=== PATIENT | male | born 1965 | race Two or more races ===

== ENCOUNTER 2016-10-14 18:08 | Inpatient (IN) | payer BC ==
[~2016-10-14] VITALS: Ht 177.8 cm; Wt 122.9 kg
--- NOTE | 2016-10-14 17:55 | NUR ---
TELE/RN OPENING NOTES PATIENT ARRIVED FROM ER ON A GURNEY.ALERT, ORIENTED X3 ABLE TO VERBALIZE NEEDS. OBSERVE FACIAL GRIMACE AND GUARDING. LAST PAIN MEDICATION GIVEN [id number].PAATIENT WITH DX OF CHEST PAIN WITH HX OF HTN, PEX2, BACK INJURY, HEMATOMA IN HEADM PROTEINS DEFFICIENCY IN BLOOD STATED BY PATIENT. ON TELE AT SINUS TACHY 115. IV ON RIGHT AC B/P 159/89. PAIN AT 7/10. POTASSIUM AT 3.4. CHEST XRAY DONE W/ NO ABNORMAL FINDING TROPONIN LEVEL 0.17. ROOM ORIENTATION PROVIDED, BELONGINGS CHECK. OBSERVE PATIENT STRONG TELEHEALTH COORDINATOR. WITH BUE AND BLE EDEMA .WILL CONTINUE TO PROVIDE CARE. BED IN LOCK POSITION CALL LIGHT WITHIN REACH.
[2016-10-14] MEDS ORDERED: MORPHINE SULFATE INJ 2 MG/ML DISP.SYRIN IV ONE (18:30)
[2016-10-14] MEDS ORDERED: ONDANSETRON HCL/PF 4 MG/2 ML VIAL IVP ONE (18:30)
--- NOTE | 2016-10-14 18:30 | NUR ---
PRESENTS SELF TO ED DUE TO CHEST PAIN, PRESSURE LIKE, 5/10, NON RADIATING STARTED 1HOUR PROGRAM DIRECTOR SCOUTING . PATIENT IS AAO3, APPEARS IN NO APPARENRT DISTRESS, HOWEVER PATIENT APPEARS ANXIOUS/ WORRIED. PATIENT WITH HX OF PE- CURRENTLY ON COUMADINE. GOWNED PT AND PLACED ON TELE MONITOR. MD PEGUERO AT BS
[2016-10-14] MEDS ORDERED: MORPHINE SULFATE INJ 4 MG/ML DISP.SYRIN ONE (18:31)
[2016-10-14] MEDS ORDERED: ONDANSETRON HCL/PF 4 MG/2 ML VIAL ONE (18:31)
--- NOTE | 2016-10-14 18:32 | NUR ---
IV ACCESSED TO BANNER 20. BLOOD SAMPLE SENT TO LAB.
[2016-10-14 18:35] LABS: BASOPHILS # (AUTO) 0.1 /CMM (0.0-0.2); EOSINOPHILS # (AUTO) 0.4 /CMM (0.0-0.7); HEMATOCRIT 45 % (39-51); HEMOGLOBIN 15.2 g/dL (13.5-17.5); LYMPHOCYTES # (AUTO) 2.4 /CMM (0.8-4.8); LYMPHOCYTES % (AUTO) 20.8 % (20.0-44.0); MEAN CORPUSCULAR HEMOGLOBIN 31 PG (26.0-33.0); MEAN CORPUSCULAR HGB CONC 34 g/dl (31.0-36.0); MEAN CORPUSCULAR VOLUME 90 fL (80-96); MONOCYTES % (AUTO) 8.1 % (2.0-12.0); NEUTROPHILS # (AUTO) 7.8 /CMM (1.8-8.9); NEUTROPHILS % (AUTO) 67.1 % (43.0-81.0); PLATELET COUNT (AUTO) 388 /CMM (150-450); RDW COEFFICIENT OF VARIATION 13.3 (11.5-15.0); RED BLOOD CELL COUNT(AUTO) 4.98 MIL/uL (4.5-6.0); WHITE BLOOD COUNT (AUTO) 11.7 K/uL (4.3-11.0)
[2016-10-14 18:45] LABS: CALCIUM, SERUM 8.9 mg/dL (8.5-10.1); CARBON DIOXIDE 31 mmol/L (21-32); CHLORIDE 104 mmol/L (98-107); CREATININE 1.3 mg/dL (0.6-1.3); GLUCOSE 114 mg/dL (74-106); POTASSIUM 3.4 mmol/L (3.5-5.1); SODIUM SERUM 143 mmol/L (136-145); UREA NITROGEN, BLOOD 18 mg/dL (7-18)
[2016-10-14] MEDS ORDERED: IV NS 0.9% 250 ML IV ONE (18:46)
[2016-10-14] MEDS ORDERED: IOHEXOL-350 100 ML VIAL IV ONE (18:46)
--- NOTE | 2016-10-14 18:49 | NUR ---
CALLED NURSING SUP. FOR TELE BED
[2016-10-14] MEDS ORDERED: HYDROMORPHONE 1 MG/1 ML DISP.SYRIN ONE (18:50)
[2016-10-14 18:53] LABS: TROPONIN I < 0.017 ng/mL (0.00-0.056)
--- NOTE | 2016-10-14 18:55 | NUR ---
MEDICATED PT FOR PAIN ORDERED
--- NOTE | 2016-10-14 18:55 | NUR ---
PATIENT WAS TAKEN TO CT
[2016-10-14] MEDS ORDERED: HYDROMORPHONE 1 MG/1 ML DISP.SYRIN IV ONE (19:00)
[2016-10-14 19:02] LABS: ALANINE AMINOTRANSFERASE 25 U/L (12-78); ALKALINE PHOSPHATASE 82 U/L (46-116); ASPARTATE AMINOTRANSFERASE 14 U/L (15-37); B-TYPE NATRIURETIC PEPTIDE 38 PG/ML (0-125); BILIRUBIN,TOTAL 0.3 mg/dL (0.2-1.0); TOTAL PROTEIN, SERUM 7.6 g/dL (6.4-8.2)
--- NOTE | 2016-10-14 19:10 | NUR ---
REPORT GIVEN TO NURSE APONTE FOR HEIDY
--- NOTE | 2016-10-14 19:10 | NUR ---
PT RETURNED FROM CT.
--- NOTE | 2016-10-14 19:11 | NUR ---
PT IS C/O CP 10/25. PT REC'D MEDICATION [address] PEGUERO IS AWARE. WILL CONTINUE TO MONITOR THE PT.
[2016-10-14 19:14] LABS: D-DIMER 0.19 mg/L(FEU (0.17-0.50); INR 2.16 (0.87-1.13); PROTHROMBIN TIME 24.3 SECS (9.5-12.7)
[2016-10-14] MEDS ORDERED: WARF4TAB41 PO (19:26)
[2016-10-14] MEDS ORDERED: WARF6TAB23 PO (19:26)
[2016-10-14] MEDS ORDERED: ATOR10TA PO (19:26)
[2016-10-14] MEDS ORDERED: IV SET PRIMARY 1 EA INFUS.SET MC ONE (19:26)
[2016-10-14] MEDS ORDERED: HYDR25TA4 PO (19:26)
[2016-10-14] MEDS ORDERED: CLON0.5T4 PO (19:26)
[2016-10-14] MEDS ORDERED: IV NS 0.9% 1,000 ML ONE (19:26)
[2016-10-14] MEDS ORDERED: CHOL200026 PO (19:26)
[2016-10-14] MEDS ORDERED: LISI2.5T2 PO (19:26)
[2016-10-14] MEDS ORDERED: CITA10TA17 PO (19:26)
--- NOTE | 2016-10-14 19:26 | NUR ---
PT APPEARS TO BE RESTING COMFORTABLY. NO S/S OF DISTRESS NOTED. WILL CONTINUE TO MONITOR THE PT.
[2016-10-14] MEDS ORDERED: IV NS 0.9% 1,000 ML BAG IV ONE (19:30)
--- NOTE | 2016-10-14 19:36 | NUR ---
CALLING REPORT MONTSERRAT ARMSTRONG
[2016-10-14 21:04] VITALS: BP 150/72
[2016-10-14] MEDS ORDERED: WARFARIN SODIUM 2 MG TABLET PO ONE (21:30)
[2016-10-14] MEDS ORDERED: ONDANSETRON HCL/PF 4 MG/2 ML VIAL IVP PRN (21:30)
[2016-10-14] MEDS ORDERED: ACETAMINOPHEN 325 MG TABLET PO PRN (21:30)
[2016-10-14] MEDS ORDERED: clonazePAM 0.5 MG TABLET PO PRN (21:30)
[2016-10-14] MEDS ORDERED: MAGNESIUM HYDROXIDE 30 ML UDC PO PRN (21:30)
[2016-10-14] MEDS ORDERED: HYDROMORPHONE INJ 2 MG/ML DISP.SYRIN IV PRN (21:30)
[2016-10-14] MEDS ORDERED: MAG HYDROX/AL HYDROX/SIMETH 30 ML UDC PO PRN (21:30)
[2016-10-14] MEDS ORDERED: ZOLPIDEM TARTRATE 5 MG TABLET PO PRN (21:30)
[2016-10-14] MEDS ORDERED: HYDROCODONE/APAP 5/325MG 1 EACH TABLET ONE (21:36)
[2016-10-14] MEDS ORDERED: METOPROLOL TARTRATE 25 MG TABLET ONE (21:38)
[2016-10-14] MEDS: HYDROCODONE/APAP 5/325MG 1 EACH TABLET PO PRN (21:42)
[2016-10-14] MEDS ORDERED: LEVOFLOXACIN 750 MG /D5W 150ML 150 ML IV ONE (21:45)
[2016-10-14] MEDS: METOPROLOL TARTRATE 25 MG TABLET PO SCH (21:51)
[2016-10-14] MEDS ORDERED: WARFARIN SODIUM 2 MG TABLET ONE (22:11)
[2016-10-14] MEDS: LEVOFLOXACIN 750 MG /D5W 150ML 750 MG in PREMIX 1 EA IV SCH (22:44)
[2016-10-14] MEDS ORDERED: SECONDARY IV SET 1 EA INFUS.SET MC ONE (23:00)
[2016-10-14] MEDS ORDERED: IV NS 0.9% 100 ML IV ONE (23:09)
[2016-10-14] MEDS ORDERED: IV SET PRIMARY PUMP SET 1 EA INFUS.SET MC ONE (23:09)
[2016-10-14] MEDS ORDERED: IV PREMIX 0.45% NS + KCL 1,000 ML IV ONE (23:45)
[2016-10-15 00:33] VITALS: BP 155/92
--- NOTE | 2016-10-15 01:14 | NUR ---
TELE/RN NOTES MD MADE ROUNDS AND TALK TO PATIENT. PATIENT VERBALIZED PAIN WILL 7/10 WILL GIVE NEEDED PAIN [place] AND CONTINUE MONITORING.
[2016-10-15] MEDS ORDERED: HYDROCODONE/APAP 5/325MG 1 EACH TABLET ONE (01:17)
[2016-10-15] MEDS: HYDROCODONE/APAP 5/325MG 1 EACH TABLET PO PRN ×4 (01:23→22:03)
[2016-10-15] MEDS ORDERED: HYDROMORPHONE INJ 2 MG/ML DISP.SYRIN ONE ×2 (02:17→05:38)
[2016-10-15 04:00] VITALS: BP 146/90
[2016-10-15 06:58] VITALS: BP 154/90
--- NOTE | 2016-10-15 07:00 | NUR ---
tele/rn closing notes patient in bed, alert, oriented x3. able to verbalize needs on pain management for mid sternal pain on chest/ . tele reading st 83. ambulatory, skin intact with noted bump/hematoma in head. will endorse to am rn regarding continuity of care/
[2016-10-15 07:16] LABS: BASOPHILS % (AUTO) 0.5 % (0.0-2.0); EOSINOPHILS # (AUTO) 0.4 /CMM (0.0-0.7); EOSINOPHILS % (AUTO) 3.5 % (0.0-6.0); HEMATOCRIT 39 % (39-51); HEMOGLOBIN 13.4 g/dL (13.5-17.5); LYMPHOCYTES # (AUTO) 2.5 /CMM (0.8-4.8); LYMPHOCYTES % (AUTO) 25.3 % (20.0-44.0); MEAN CORPUSCULAR HEMOGLOBIN 31 PG (26.0-33.0); MEAN CORPUSCULAR HGB CONC 34 g/dl (31.0-36.0); MEAN CORPUSCULAR VOLUME 90 fL (80-96); MONOCYTES # (AUTO) 1.1 /CMM (0.1-1.30); MONOCYTES % (AUTO) 11.1 % (2.0-12.0); NEUTROPHILS # (AUTO) 5.9 /CMM (1.8-8.9); NEUTROPHILS % (AUTO) 59.6 % (43.0-81.0); PLATELET COUNT (AUTO) 330 /CMM (150-450); RDW COEFFICIENT OF VARIATION 13.6 (11.5-15.0); RED BLOOD CELL COUNT(AUTO) 4.38 MIL/uL (4.5-6.0); WHITE BLOOD COUNT (AUTO) 9.9 K/uL (4.3-11.0)
[2016-10-15 07:22] LABS: INR 1.98 (0.87-1.13); PROTHROMBIN TIME 22.1 SECS (9.5-12.7)
[2016-10-15 07:32] LABS: TROPONIN I < 0.017 ng/mL (0.00-0.056)
--- NOTE | 2016-10-15 07:32 | NUR ---
rn notes received pt in bed. awake, alert, oriented x4. in no apparent distress. respirations even and unlabored on o2 @ 2lpm via nc. stated pain @ 6/10 ; will administer PRN norco. Pt signed consent for planned VQ scan this am. call light within reach. Will continue to monitor
[2016-10-15 07:42] LABS: ALANINE AMINOTRANSFERASE 27 U/L (12-78); ALBUMIN 3.3 g/dL (3.4-5.0); ALKALINE PHOSPHATASE 64 U/L (46-116); ASPARTATE AMINOTRANSFERASE 16 U/L (15-37); BILIRUBIN,TOTAL 0.3 mg/dL (0.2-1.0); CARBON DIOXIDE 27 mmol/L (21-32); CHLORIDE 106 mmol/L (98-107); CREATININE 0.8 mg/dL (0.6-1.3); GLUCOSE 102 mg/dL (74-106); MAGNESIUM 1.8 mg/dL (1.8-2.4); PHOSPHORUS 3.9 mg/dL (2.5-4.9); POTASSIUM 3.7 mmol/L (3.5-5.1); SODIUM SERUM 141 mmol/L (136-145); TOTAL PROTEIN, SERUM 6.7 g/dL (6.4-8.2); UREA NITROGEN, BLOOD 17 mg/dL (7-18)
[2016-10-15] MEDS: PANTOPRAZOLE 40 MG TABLET.DR PO SCH (07:49)
[2016-10-15 08:00] VITALS: BP 162/99
[2016-10-15] MEDS: LISINOPRIL (10MG) 10 MG TABLET PO SCH (08:25)
[2016-10-15] MEDS: CITALOPRAM HYDROBROMIDE 10 MG TABLET PO SCH (08:25)
[2016-10-15] MEDS: CHOLECALCIFEROL 1,000 UNIT TABLET (VIT D3) PO SCH (08:25)
[2016-10-15] MEDS: METOPROLOL TARTRATE 25 MG TABLET PO SCH ×2 (08:26→21:00)
[2016-10-15 08:35] LABS: CHOLESTEROL 199 mg/dL (<200); HDL CHOLESTEROL 29 mg/dL (40-60); LDL 120 mg/dL (0-99); THYROID STIMULATING HORMONE 1.172 uIU/mL (0.358-3.74); TRIGLYCERIDES 259 mg/dL (30-150)
[2016-10-15] MEDS ORDERED: HYDROCHLOROTHIAZIDE 25 MG TABLET PO SCH (09:00)
--- NOTE | 2016-10-15 09:30 | NUR ---
RN NOTES PT TOLERATED ALL DUE MEDS. ATE BREAKFAST WELL. IN O APPARENT DISTRESS. WILL CONTINUE TO MONITOR
[2016-10-15] MEDS: HYDROMORPHONE INJ 2 MG/ML DISP.SYRIN IV PRN ×3 (09:53→19:47)
--- NOTE | 2016-10-15 10:00 | NUR ---
RN NOTES PT SEEN AND EXAMINED BY DR RITTER- WITH NEW ORDERS NOTED AND CARRIED OUT
[2016-10-15] MEDS: VALSARTAN 80 MG TABLET PO SCH (10:50)
--- NOTE | 2016-10-15 11:30 | NUR ---
RN NOTES PT PICKED UP BY RADIOLOGY FOR SCHEDULED CARDIAC STRESS TEST. WILL AWAIT RETURN
--- NOTE | 2016-10-15 15:47 | NUR ---
RN NOTES PT SIGNED CONSENT FOR CARDIAC STRESS TEST. PLACED IN CHART. PT GIVEN INSTRUCTIONS NPO POST MIDNIGHT, NO CAFFEINATED DRINK AFTER DINNER TONIGHT. VERBALIZED UNDERSTANDING
[2016-10-15 16:00] VITALS: BP 153/91
[2016-10-15] MEDS: WARFARIN SODIUM 2 MG TABLET PO SCH (17:00)
[2016-10-15] MEDS ORDERED: WARFARIN SODIUM 2 MG TABLET PO SCH (17:00)
--- NOTE | 2016-10-15 18:00 | NUR ---
RN NOTES PT IN BED. AWAKE, ALERT, ORIENTED X 3. IN NO APPARENT DISTRESS. RESPIRATIONS EVEN AND UNLABORED. TOLERATED ALL DUE MEDS. WILL ENDORSE TO ONCOMING SHIFT
--- NOTE | 2016-10-15 19:05 | NUR ---
DRUG DEPARTMENT WORKER OPENING NOTES: RECEIVED PT IN BED AWAKE WITH GIRLFRIEND AT BEDSIDE. PT IS A/O X3. PT HAS URINAL AT BEDSIDE. PT WAS INFORMED THAT HE WILL BE NPO PAST MIDNIGHT. PT HAS IV ON R AC 20G AND IS PATENT AND INTACT. PT VOICED THAT HIS PAIN LEVEL IS AT A 7/10 CHEST PAIN. CALL LIGHT WITHIN PT'S REACH. BED KEPT IN LOCKED, LOWEST POSITION, AND SIDE RAILS X 2 UP. WILL CONTINUE TO MONITOR PT.
--- NOTE | 2016-10-15 19:05 | NUR ---
REVENUE STAMP CLERK NOTES: REASSESSMENT FOR [place]BBOCK 10/15/16 0223 WAS NOT DONE.
--- NOTE | 2016-10-15 19:47 | NUR ---
BRANCH OR DEPARTMENT CHIEF LIBRARIAN NOTES: PT COMPLAINED OF CHEST PAIN 11/24. PT REQUESTED FOR DILAUDID 1MG IV. WILL CONTINUE TO MONITOR PT.
[2016-10-15 20:00] VITALS: BP 101/68
--- NOTE | 2016-10-15 21:00 | NUR ---
GOLD LEAF GILDER NOTES: LOPRESSOR 25MG PO WAS HELD D/T LOW BLOOD PRESSURE: 101/68 HR 64 ; WILL CONTINUE TO MONITOR PT.
[2016-10-15] MEDS: LEVOFLOXACIN 750 MG /D5W 150ML 750 MG in PREMIX 1 EA IV SCH (21:36)
[2016-10-15] MEDS ORDERED: IV NS 0.9% 250 ML IV ONE (21:39)
[2016-10-15] MEDS ORDERED: IV SET PRIMARY PUMP SET 1 EA INFUS.SET MC ONE (21:39)
[2016-10-15] MEDS ORDERED: SECONDARY IV SET 1 EA INFUS.SET MC ONE (21:40)
--- NOTE | 2016-10-15 22:03 | NUR ---
FLESHING MACHINE OPERATOR NOTES: PT IS STILL COMPLAINING OF CHEST PAIN 10/25. PT REQUESTED HIS NORCO 5/325MG PO. ALSO INFORMED PT THAT POST MIDNIGHT, HE WILL BE NPO. WILL CONTINUE TO MONITOR PT.
[2016-10-16] VITALS: BP 124/80
[2016-10-16] MEDS: HYDROMORPHONE INJ 2 MG/ML DISP.SYRIN IV PRN ×5 (00:47→14:25)
--- NOTE | 2016-10-16 00:47 | NUR ---
TUBULAR PRODUCTS FABRICATOR NOTES: PT COMPLAINED OF 7/10 HEAD AND CHEST PAIN. PT REQUESTED FOR DILAUDID. BP WAS 124/80 HR 86 AND PULSE OX 96% ; WILL CONTINUE TO MONITOR PT.
--- NOTE | 2016-10-16 03:53 | NUR ---
ACCOUNTS RECEIVABLE CLERK NOTES: PT COMPLAINED OF 6/10 HEAD PAIN AND REQUESTED FOR DILAUDID. PT'S BP WAS 113/77 HR 78 AND PULSE OX 97% . WILL CONTINUE TO MONITOR PT.
[2016-10-16 04:00] VITALS: BP 113/77
[2016-10-16 06:39] LABS: BASOPHILS # (AUTO) 0.1 /CMM (0.0-0.2); BASOPHILS % (AUTO) 0.6 % (0.0-2.0); EOSINOPHILS # (AUTO) 0.6 /CMM (0.0-0.7); EOSINOPHILS % (AUTO) 7.4 % (0.0-6.0); HEMATOCRIT 39 % (39-51); HEMOGLOBIN 13.6 g/dL (13.5-17.5); LYMPHOCYTES # (AUTO) 1.9 /CMM (0.8-4.8); LYMPHOCYTES % (AUTO) 24.2 % (20.0-44.0); MEAN CORPUSCULAR HEMOGLOBIN 31 PG (26.0-33.0); MEAN CORPUSCULAR HGB CONC 35 g/dl (31.0-36.0); MEAN CORPUSCULAR VOLUME 89 fL (80-96); MONOCYTES # (AUTO) 0.7 /CMM (0.1-1.30); MONOCYTES % (AUTO) 9.4 % (2.0-12.0); NEUTROPHILS # (AUTO) 4.6 /CMM (1.8-8.9); NEUTROPHILS % (AUTO) 58.4 % (43.0-81.0); PLATELET COUNT (AUTO) 345 /CMM (150-450); RDW COEFFICIENT OF VARIATION 13.6 (11.5-15.0); WHITE BLOOD COUNT (AUTO) 7.9 K/uL (4.3-11.0)
[2016-10-16 06:54] LABS: TROPONIN I < 0.017 ng/mL (0.00-0.056)
--- NOTE | 2016-10-16 06:54 | NUR ---
SENIOR USER EXPERIENCE ARCHITECT NOTES: PT COMPLAINED OF 7/10 CHEST AND HEAD PAIN. BP WAS 119/84 HR 98 AND PULSE OX 94% . WILL CONTINUE TO MONITOR PT.
[2016-10-16 07:04] LABS: ALANINE AMINOTRANSFERASE 27 U/L (12-78); ALBUMIN 3.3 g/dL (3.4-5.0); ALKALINE PHOSPHATASE 73 U/L (46-116); ASPARTATE AMINOTRANSFERASE 15 U/L (15-37); BILIRUBIN,TOTAL 0.2 mg/dL (0.2-1.0); CALCIUM, SERUM 8.4 mg/dL (8.5-10.1); CARBON DIOXIDE 27 mmol/L (21-32); CHLORIDE 105 mmol/L (98-107); CREATININE 0.9 mg/dL (0.6-1.3); GLUCOSE 127 mg/dL (74-106); MAGNESIUM 1.9 mg/dL (1.8-2.4); PHOSPHORUS 4.1 mg/dL (2.5-4.9); POTASSIUM 4.1 mmol/L (3.5-5.1); SODIUM SERUM 141 mmol/L (136-145); TOTAL PROTEIN, SERUM 6.9 g/dL (6.4-8.2); UREA NITROGEN, BLOOD 19 mg/dL (7-18)
[2016-10-16 07:06] VITALS: BP 125/70
--- NOTE | 2016-10-16 07:30 | NUR ---
AIRCRAFT LIFE SUPPORT FITTER AM NOTES: PT IN BED, AWAKE/ALERT/ORIENTED X 4, ON RA, NAD, NO SOB, RESPIRATION UNLABORED, TELEMETRY READS SR HR 75, C/O 4/10 CHEST PAIN, RECEIVED PAIN MEDS AWHILE AGO. RT AC20G IV ACCESS FLUSHES WELL, SITE CLEAR. AMBULATES TO BATHROOM. NPO FOR LEXISCAN BUT PATIENT REFUSING PROCEDURE. CALL LIGHT WITHIN PT'S REACH. BED KEPT IN LOCKED, LOWEST POSITION, AND SIDE RAILS X 2 UP. WILL CONTINUE TO MONITOR PT.
--- NOTE | 2016-10-16 07:30 | NUR ---
MASK LAYOUT DESIGNER CLOSING NOTES: ALL NEEDS WERE ATTENDED AND ANTICIPATED FOR. PT IS ON TELE SR 77-91 . PT HAS IV ON R AC #20G AND IS PATENT AND INTACT. PT KEPT CLEAN, DRY, AND COMFORTABLE. NO SIGNS OR SYMPTOMS OF DISTRESS NOTED AT THIS TIME. URINAL OUTPUT FOR THE SHIFT WAS 1500ML. BED KEPT IN LOCKED, LOWEST POSITION, AND SIDE RAILS X 2 UP. ENDORSED TO AM NURSE FOR HEIDY.
--- NOTE | 2016-10-16 07:52 | NUR ---
LEAD ADVISOR NOTES PATIENT SEEN BY DR. IRTTER STILL REFUSED LEXISCAN. WILL RESUME DIET.
[2016-10-16 08:00] VITALS: BP 125/70
[2016-10-16] MEDS: VALSARTAN 80 MG TABLET PO SCH (08:52)
[2016-10-16] MEDS: CHOLECALCIFEROL 1,000 UNIT TABLET (VIT D3) PO SCH (08:53)
[2016-10-16] MEDS: METOPROLOL TARTRATE 25 MG TABLET PO SCH (08:53)
[2016-10-16] MEDS: LISINOPRIL (10MG) 10 MG TABLET PO SCH (08:53)
[2016-10-16] MEDS: CITALOPRAM HYDROBROMIDE 10 MG TABLET PO SCH (08:53)
[2016-10-16] MEDS: PANTOPRAZOLE 40 MG TABLET.DR PO SCH (08:54)
[2016-10-16] MEDS ORDERED: REGADENOSON 0.4 MG/5 ML DISP.SYRIN IVP ONE (09:00)
--- NOTE | 2016-10-16 09:30 | NUR ---
MUCKER COFFERDAM NOTES ADMINISTERED DUE MEDS.
--- NOTE | 2016-10-16 10:45 | NUR ---
LOCAL SALES ASSOCIATE NOTES PT SEEN BY DR. SALGADO EARLIER, PATIENT INITIALLY AGREED TO HAVE NM STRESS TEST TOMORROW BUT AGAIN CHANGED HIS MIND. AWARE.
[2016-10-16 16:00] VITALS: BP 120/77
[2016-10-16] MEDS ORDERED: METO25TA20 PO (16:18)
[2016-10-16] MEDS ORDERED: VALS80TA2 PO (16:18)
[2016-10-16] MEDS: WARFARIN SODIUM 2 MG TABLET PO SCH (17:00)
[2016-10-16] MEDS: HYDROCODONE/APAP 5/325MG 1 EACH TABLET PO PRN (17:03)
[2016-10-16 17:13] VITALS: BP 120/77
--- NOTE | 2016-10-16 17:14 | NUR ---
VALVER DC NOTES PATIENT SEEN BY DR. SALGADO EARLIER TODAY. DISCHARGED TO HOME PER MD IN STABLE CONDITION. PROVIDED DC INSTRUCTIONS, MED RECON LIST AND HEALTH TEACHINGS, IV ACCESS ON RIGHT AC REMOVED, NO BLEEDING, DRESSING IN PLACE. ALL BELONGINGS CHECKED AND RETURNED. ALL PAPER WORKS SIGNED. PT TO FOLLOW UP WITH PCP IN 1-2 WEEKS AND WILL MAKE OWN APPOINTMENT. ACCOMPANIED BY GIRLFRIEND AND SAIGE SUSTAINABLE SYSTEMS ANALYST TO [facility]. WILL BE TRANSPORTED TO HOME VIA PRIVATE CAR.
== END 2016-10-16 17:30 | disposition home or self-care (01) | DRG 194 ==
LOC: ER 18:10 → TELE 19:47
PROVIDERS: ADMIT Internal Medicine; ATTEND Internal Medicine
DX: J15.9 Unspecified bacterial pneumonia (principal); D68.59 Other primary thrombophilia; I20.8 Other forms of angina pectoris; E66.01 Morbid (severe) obesity due to excess calories; G47.33 Obstructive sleep apnea (adult) (pediatric); I10 Essential (primary) hypertension; G89.4 Chronic pain syndrome; E87.6 Hypokalemia; Z79.01 Long term (current) use of anticoagulants; Z86.711 Personal history of pulmonary embolism; R73.9 Hyperglycemia, unspecified; Z87.891 Personal history of nicotine dependence; Z68.38 Body mass index [BMI] 38.0-38.9, adult
CPT/HCPCS: 36415; 71010-TC; 78582; 80048-TC; 80053-TC; 80061-TC; 80076-TC; 83735-TC; 83880; 84100-TC; 84443-TC; 84484-TC; 85025-TC; 85378-TC; 85610-TC; 85730-TC; 87081-TC; 93307-TC; 93971-TC; A4216; A4606; A9540; A9567; J1170; J1956; J2270; J2405; J2785; J3480; J3490; J7030; J7050; Q9967; Z7610

== ENCOUNTER 2018-01-16 21:22 | Inpatient (IN) | payer OTHER ==
[~2018-01-16] VITALS: Ht 177.8 cm; Wt 127.0 kg
[~2018-01-16 21:22] MED LIST: ATOR10TA PO; CHOL200026 PO; CITA10TA17 PO; CLON0.5T12 PO; LISI2.5T2 PO; METO25TA20 PO; VALS80TA2 PO; WARF4TAB41 PO; WARF6TAB23 PO
--- NOTE | 2018-01-16 23:25 | NUR ---
TRAUMA COORDINATORVOCAL ARTIST NOTES Patient is direct admit from [facility]. Came to unit via [facility]. Patient alert, oriented x 4.Patient complains of chest pain especially when he coughs. According to ambulance people, he was given dilaudid 20 mins prior to pick-up. Patient's v/s upon arrival; BP-132/94, HR-110, RR-22, Temp- 98 SPO2-100% on 5L via NC. Skin assessment done. No skin issues. Chris Gunderson NP made aware of patient's arrival. Oriented to call mina. Safety measures in place. Will continue to monitor Addendum: 01/17/18 at 0624 by ADRIANA SANTIAGO RN ADDITIONAL NOTES MRSA SWAB doneRashmi holden
[2018-01-17] MEDS ORDERED: AMLO10TA2 PO (00:22)
[2018-01-17] MEDS ORDERED: LISI10TA5 PO (00:22)
[2018-01-17] MEDS ORDERED: BUSP5TAB3 PO (00:22)
[2018-01-17] MEDS ORDERED: SUCR1TAB PO (00:22)
[2018-01-17] MEDS ORDERED: ZOLPIDEM TARTRATE 5 MG TABLET PO PRN (00:30)
[2018-01-17] MEDS ORDERED: HYDROCODONE/APAP 5/325MG 1 EACH TABLET PO PRN (00:30)
[2018-01-17] MEDS ORDERED: Z GUARD REMEDY 2 OZ OINT TP PRN (00:30)
[2018-01-17] MEDS ORDERED: MAG HYDROX/AL HYDROX/SIMETH 30 ML UDC PO PRN (00:30)
[2018-01-17] MEDS ORDERED: HYDROMORPHONE INJ 0.5 MG/0.5 ML SYRINGE IV PRN (00:30)
[2018-01-17] MEDS ORDERED: MAGNESIUM HYDROXIDE 30 ML UDC PO PRN (00:30)
[2018-01-17] MEDS ORDERED: ONDANSETRON HCL/PF 4 MG/2 ML VIAL IVP PRN (00:30)
[2018-01-17] MEDS ORDERED: NITROGLYCERIN 0.3 MG/HR TD SCH ×2 (00:30→02:00)
[2018-01-17] MEDS ORDERED: ACETAMINOPHEN 325 MG TABLET PO PRN (00:30)
[2018-01-17] MEDS: HYDROMORPHONE 1 MG/1 ML DISP.SYRIN IV PRN ×3 (01:17→09:57)
--- NOTE | 2018-01-17 01:17 | NUR ---
POWER REACTOR SUPERVISOR NOTES Patient complaining of chest pain 12/25. Dilaudid 0.5mg IV given as ordered
[2018-01-17] MEDS ORDERED: NITROGLYCERIN 0.4 MG/HR PATCH.TD24 TD SCH (03:00)
[2018-01-17] MEDS ORDERED: NITROGLYCERIN 0.4 MG/HR PATCH.TD24 TD ONE (03:28)
--- NOTE | 2018-01-17 03:47 | NUR ---
RN NOTES Nitro Dur Patch 0.4mg/hr given as ordered. Medication manually administered as scanner stopped working.
[2018-01-17 04:00] VITALS: BP 129/93
--- NOTE | 2018-01-17 04:49 | NUR ---
RN NOTES Patient took out Nitro Dur Patch. As per patient," It is giving me a bad headache."
--- NOTE | 2018-01-17 05:44 | NUR ---
RN NOTES Patient complaining of sharp chest pain that radiates to the back, 12/25. Dilaudid 0.5mg given as ordered
--- NOTE | 2018-01-17 06:53 | NUR ---
INSPECTION SUPERVISOR CLOSING NOTES Patient still sleeping in bed, easily arousable. Breathing even and unlabored. Not in any distress. On O2 at 5LPM saturating at 100%. Tele monitor in place; sinus rhythm 100. Safety measures in place. Call mina within reach. Bed in low, locked position. All needs attended to. All due medications given as ordered. Will endorse HEIDY to morning RN.
[2018-01-17 08:00] VITALS: BP 139/108
--- NOTE | 2018-01-17 08:03 | NUR ---
rn notes received patient in the bed a/o x3/4, on o2-2l nc, tele, sr-93, patient has no acute respirator distress, was complaining of left upper chest pain 11/24. patient coughing, which is making pain more severe, administered narco 5/325 mg po prn, v/s taken bp 129/108, p-90, also administered scheduled medication. needs attended and anticipated, call light within to reach, next to the bed, continued monitoring.
[2018-01-17] MEDS: SUCRALFATE 1 G TABLET PO SCH ×2 (08:24→12:56)
[2018-01-17 08:25] VITALS: BP 139/108
[2018-01-17] MEDS ORDERED: AMLODIPINE BESYLATE 10 MG TABLET PO SCH (09:00)
[2018-01-17] MEDS ORDERED: LISINOPRIL (10MG) 10 MG TABLET PO SCH ×2 (09:00)
[2018-01-17] MEDS ORDERED: busPIRone 5 MG TABLET PO SCH (09:00)
--- NOTE | 2018-01-17 09:13 | NUR ---
rn notes administered Tylenol 650 mg po prn for headache per patient request. continued monitoring.
--- NOTE | 2018-01-17 09:57 | NUR ---
rn notes administered Dilaudid 0.5 mg/ml iv push per patient request for pain 12/25, v/s taken bp- 141/ 96, p-99. patient seen by jingle writer. continued monitoring.
[2018-01-17] MEDS ORDERED: GUAIFENESIN/CODEINE 10 ML UDC PO PRN (10:30)
[2018-01-17] MEDS ORDERED: BENZONATATE 100 MG CAPSULE PO PRN (10:30)
--- NOTE | 2018-01-17 12:51 | NUR ---
RN NOTES ADMINISTERED ROBITUSSIN COUGH MEDICATION PER PATIENT REQUEST, CONTINUED MONITORING.
--- NOTE | 2018-01-17 14:30 | NUR ---
DISCHARGE NOTES PATIENT STABLE, AND GOING TO BE DISCHARGE HOME AT THIS TIME. PATIENT A/O X4, MED COMPLIANT,V/S STABLE, REFUSED PAIN AT THIS TIME. MED RECONCILIATION AND DISCHARGE ORDER REVIEWED AND EXPLAINED TO PATIENT AND . PATIENT VERNALIZED UNDERSTANDING. PATIENT WILL FOLLOW PRIMARY MD. PATIENT REFUSED SIGN PAPERWORK. BELONGING WITH THE PATIENT. PATIENT CLINIC MD ASSOCIATE BY NAME KATIE. PHONE # [phone]. ESCORTED PATIENT TO THE LOBBY FOR SAFETY.
[2018-01-17] MEDS ORDERED: ATORVASTATIN 40 MG TABLET PO SCH (22:00)
== END 2018-01-17 13:58 | disposition home or self-care (01) | DRG 203 ==
LOC: TELE 23:12
PROVIDERS: ADMIT Family Medicine; ATTEND Family Medicine
DX: R07.89 Other chest pain (principal); D68.59 Other primary thrombophilia; Z68.41 Body mass index [BMI] 40.0-44.9, adult; E66.9 Obesity, unspecified; E78.5 Hyperlipidemia, unspecified; F41.9 Anxiety disorder, unspecified; G47.33 Obstructive sleep apnea (adult) (pediatric); I10 Essential (primary) hypertension; Z87.891 Personal history of nicotine dependence; Z87.01 Personal history of pneumonia (recurrent)
CPT/HCPCS: 36415; 84484-TC; 87081-TC; 93307-TC; J1170

== ENCOUNTER 2018-11-12 17:36 | Inpatient (IN) | payer SELFPAY ==
[~2018-11-12] VITALS: Ht 177.8 cm; Wt 130.6 kg
[~2018-11-12 17:36] MED LIST changes: +AMLO10TA7 PO; +BUSP5TAB3 PO; +LISI10TA5 PO; +SUCR1TAB PO
--- NOTE | 2018-11-12 17:46 | NUR ---
PT SELF PRESENTS TO ED C/O 2-3 DAYS OF WORSENING CHEST PAIN DESCREBING IT PRESSURE LIKE, NON RADIATING W/ MODERATE SOB. PT STATES HX OF PE. STOPPED TAKING ELIQUIS 2 WEEKS AGO IN PREPARATION FOR ORAL SURGERY. PT GOWNED AND PLACED ON MONITOR. SINUS TACH ON MONITOR. AWAITING MD SANON.
--- NOTE | 2018-11-12 17:49 | NUR ---
DR BERNARD AT BEDSIDE FOR EVAL.
--- NOTE | 2018-11-12 17:50 | NUR ---
IV LINE STARTED BLOOD DRAWN AND SENT TO LAB.
[2018-11-12 18:00] LABS: BASOPHILS # (AUTO) 0.2 /CMM (0.0-0.2); EOSINOPHILS % (AUTO) 2.5 % (0.0-6.0); HEMATOCRIT 50 % (39-51); HEMOGLOBIN 16.9 g/dL (13.5-17.5); LYMPHOCYTES # (AUTO) 2.1 /CMM (0.8-4.8); LYMPHOCYTES % (AUTO) 22.7 % (20.0-44.0); MEAN CORPUSCULAR HGB CONC 34 g/dl (31.0-36.0); MEAN CORPUSCULAR VOLUME 91 fL (80-96); MONOCYTES # (AUTO) 0.7 /CMM (0.1-1.30); MONOCYTES % (AUTO) 7.3 % (2.0-12.0); NEUTROPHILS % (AUTO) 65.5 % (43.0-81.0); PLATELET COUNT (AUTO) 294 /CMM (150-450); RED BLOOD CELL COUNT(AUTO) 5.48 MIL/uL (4.5-6.0); WHITE BLOOD COUNT (AUTO) 9.2 K/uL (4.3-11.0)
[2018-11-12] MEDS ORDERED: APIXABAN 5 MG TABLET PO SCH (18:00)
--- NOTE | 2018-11-12 18:03 | NUR ---
RADIOLOGY AT BEDSIDE FOR CHEST XRAY.
[2018-11-12] MEDS ORDERED: METO25TA6 PO (18:07)
[2018-11-12] MEDS ORDERED: APIX5TAB PO (18:07)
[2018-11-12] MEDS ORDERED: MULT-24 PO (18:07)
[2018-11-12] MEDS ORDERED: FLUT1BLS IH (18:09)
[2018-11-12 18:12] LABS: CARBON DIOXIDE 28 mmol/L (21-32); CHLORIDE 104 mmol/L (98-107); CREATININE 0.9 mg/dL (0.6-1.3); GLUCOSE 140 mg/dL (74-106); POTASSIUM 3.6 mmol/L (3.5-5.1); SODIUM SERUM 140 mmol/L (136-145); UREA NITROGEN, BLOOD 12 mg/dL (7-18)
[2018-11-12] MEDS ORDERED: MORPHINE SULFATE INJ 4 MG/ML DISP.SYRIN ONE (18:16)
[2018-11-12 18:25] LABS: B-TYPE NATRIURETIC PEPTIDE 20 PG/ML (0-125)
[2018-11-12] MEDS ORDERED: IV NS 0.9% 500 ML IV ONE (18:30)
[2018-11-12] MEDS ORDERED: MORPHINE SULFATE INJ 2 MG/ML DISP.SYRIN IV ONE (18:30)
[2018-11-12] MEDS ORDERED: ONDANSETRON HCL/PF 4 MG/2 ML VIAL ONE (18:35)
--- NOTE | 2018-11-12 18:37 | NUR ---
PT C/O NAUSEA S/P IV PAIN MEDS. DR BERNARD AWARE. VERBAL ORDER FOR ZOFRAN 4MG IVP GIVEN AND CARRIED OUT.
[2018-11-12 18:39] LABS: D-DIMER 0.19 mg/L(FEU (0.17-0.50)
--- NOTE | 2018-11-12 18:50 | NUR ---
PT TO RADIOLOGY FOR CT PULMONARY ANGIO VIA [facility].
[2018-11-12] MEDS ORDERED: CT SWABBABLE VALVE TRANS SET 1 EA INFUS.SET MC ONE (18:52)
[2018-11-12] MEDS ORDERED: IOHEXOL-350 100 ML VIAL IV ONE (18:52)
[2018-11-12] MEDS ORDERED: IV NS 0.9% 250 ML IV ONE (18:52)
--- NOTE | 2018-11-12 19:13 | NUR ---
REPORT GIVEN TO MEDIA STRATEGIST NURSE ED FOR HEIDY.
--- NOTE | 2018-11-12 19:16 | NUR ---
ASSUMED CARE, RECEIVED REPORT FROM AM SHIFT RN LISA. PT AAOX4 NO ACUTE DISTRESS NOTED, RESP EVEN AND UNLABORED. PT C/O CH 12/25. ER MD AWARE WITH NO ORDERS RECEIVED AT THIS TIME. AWAITING CT PULMONARY ANGIOGRAM RESULT.
--- NOTE | 2018-11-12 19:39 | NUR ---
PT C/O CHEST PAIN 12/25. ER MD MADE AWARE WITH ORDERS RECEIVED. WILL CARRY OUT ORDERS.
[2018-11-12] MEDS ORDERED: HYDROCODONE/APAP 5/325MG 1 EACH TABLET ONE (19:43)
--- NOTE | 2018-11-12 19:46 | NUR ---
PT MEDICATED ORDERED.
[2018-11-12] MEDS ORDERED: HYDROCODONE/APAP 5/325MG 1 EACH TABLET PO ONE (20:00)
[2018-11-12] MEDS ORDERED: CEFTRIAXONE 1GM BAG (ER ONLY) 50 ML IV ONE (20:29)
[2018-11-12] MEDS ORDERED: AZITHROMYCIN 500 MG in IV D5W 250 ML IV ONE (20:30)
[2018-11-12] MEDS ORDERED: AZITHROMYCIN 500 MG VIAL ONE (20:30)
[2018-11-12] MEDS ORDERED: CEFTRIAXONE 1 G in IV D5W 50 ML IV ONE (20:30)
--- NOTE | 2018-11-12 20:41 | NUR ---
CALLED FOR TELE BED, TURNED IN MOVED SHEET, DR LEMUS CALLED AND TALKED TO ED
[2018-11-12] MEDS ORDERED: MAGNESIUM HYDROXIDE 30 ML UDC PO PRN (21:00)
[2018-11-12] MEDS ORDERED: MAG HYDROX/AL HYDROX/SIMETH 30 ML UDC PO PRN (21:00)
[2018-11-12] MEDS ORDERED: ONDANSETRON HCL/PF 4 MG/2 ML VIAL IVP PRN (21:00)
[2018-11-12] MEDS ORDERED: Z GUARD REMEDY 2 OZ OINT TP PRN (21:00)
[2018-11-12] MEDS ORDERED: ZOLPIDEM TARTRATE 5 MG TABLET PO PRN (21:00)
[2018-11-12] MEDS ORDERED: SUCRALFATE 1 G TABLET PO PRN (21:00)
--- NOTE | 2018-11-12 21:00 | NUR ---
REPORT CALLED TO COMMERCIAL DRONE SOFTWARE DEVELOPERMONTSERRAT RAMIREZ. WILL TRANSPORT PT VIA ACLS PROTOCOL.
[2018-11-12 21:19] VITALS: BP 155/115
--- NOTE | 2018-11-12 21:25 | NUR ---
PT TRANSPORTED TO TELEMETRY ROOM 322-2.
--- NOTE | 2018-11-12 22:20 | NUR ---
DR VILLALBA CAME AND SEEN THE PATIENT.
[2018-11-12] MEDS: ATORVASTATIN 10 MG TABLET PO SCH (22:29)
[2018-11-12] MEDS: MORPHINE SULFATE INJ 2 MG/ML DISP.SYRIN IM PRN (22:45)
[2018-11-12] MEDS: ALBUTEROL FS 2.5 MG/0.5 ML VIAL.NEB NEB SCH (23:45)
[2018-11-13] VITALS: BP 141/107
[2018-11-13 00:10] VITALS: BP 141/107
--- NOTE | 2018-11-13 00:33 | NUR ---
CALLED DR VILLALBA FOR BM=[phone], AO=904, WITH ORDERS MADE AND CARRIED-OUT.
[2018-11-13] MEDS ORDERED: METOPROLOL TARTRATE 50 MG TABLET PO ONE (00:45)
[2018-11-13] MEDS: MORPHINE SULFATE INJ 2 MG/ML DISP.SYRIN IM PRN ×2 (03:43→07:51)
[2018-11-13] MEDS: ALBUTEROL FS 2.5 MG/0.5 ML VIAL.NEB NEB SCH ×6 (03:45→22:41)
[2018-11-13 04:00] VITALS: BP 165/112
[2018-11-13] MEDS: HYDROCODONE/APAP 5/325MG 1 EACH TABLET PO PRN ×3 (05:54→21:56)
--- NOTE | 2018-11-13 06:31 | NUR ---
RN CLOSING NOTES: PATIENT IS ASLEEP AT THIS TIME, MEDICATED WITH NORCO 1 TAB PO AT 0600 FOR LEFT SIDE ABDOMINAL PAIN 8/10 PAIN LEVEL. MEDICATED WITH MORPHINE IM LAST NIGHT. CALL LIGHT WITHIN REACH. BED IN LOW AND LOCKED POSITION. KEPT ON O2 AT 3L/MIN NC.
[2018-11-13 06:34] LABS: BASOPHILS # (AUTO) 0.2 /CMM (0.0-0.2); BASOPHILS % (AUTO) 2.6 % (0.0-2.0); EOSINOPHILS % (AUTO) 4.5 % (0.0-6.0); HEMATOCRIT 47 % (39-51); HEMOGLOBIN 15.8 g/dL (13.5-17.5); LYMPHOCYTES # (AUTO) 1.5 /CMM (0.8-4.8); LYMPHOCYTES % (AUTO) 17.8 % (20.0-44.0); MEAN CORPUSCULAR HGB CONC 34 g/dl (31.0-36.0); MEAN CORPUSCULAR VOLUME 91 fL (80-96); MONOCYTES # (AUTO) 0.9 /CMM (0.1-1.30); MONOCYTES % (AUTO) 10.6 % (2.0-12.0); NEUTROPHILS # (AUTO) 5.4 /CMM (1.8-8.9); NEUTROPHILS % (AUTO) 64.5 % (43.0-81.0); PLATELET COUNT (AUTO) 269 /CMM (150-450); RED BLOOD CELL COUNT(AUTO) 5.13 MIL/uL (4.5-6.0); WHITE BLOOD COUNT (AUTO) 8.4 K/uL (4.3-11.0)
[2018-11-13 06:52] LABS: ALBUMIN 3.4 g/dL (3.4-5.0); BILIRUBIN,TOTAL 0.3 mg/dL (0.2-1.0); CALCIUM, SERUM 8.2 mg/dL (8.5-10.1); MAGNESIUM 2.2 mg/dL (1.8-2.4); PHOSPHORUS 4.5 mg/dL (2.5-4.9); POTASSIUM 3.7 mmol/L (3.5-5.1)
--- NOTE | 2018-11-13 07:37 | NUR ---
TELE/RN OPENING NOTE PATIENT IN BED IN STABLE CONDITION. A/O X 4. NO SIGNS OF ACUTE DISTRESS. COMPLAIN OF PAIN TO RIGHT SIDE UPPER ABDOMEN RATED 10/10 S/P NORCO GIVEN AT 5:54AM. WILL ADMINISTER PAIN MEDICATIONS ORDERED. SEEN BY DR RITTER WITH NEW ORDERS. ON TELE MONITOR NOTED WITH SR WITH RATE OF 85. ALL NEEDS ATTENDED TO AT THIS TIME. CALL LIGHT WITHIN REACH. WILL CONTINUE TO MONITOR TO ENSURE SAFETY.
[2018-11-13 07:48] LABS: THYROID STIMULATING HORMONE 1.986 uIU/mL (0.358-3.74)
[2018-11-13 08:00] VITALS: BP 165/104
[2018-11-13] MEDS: FLUTICASONE/VILANTEROL 1 EACH BLST.W.DEV IH SCH ×2 (08:21→16:25)
[2018-11-13] MEDS: ENOXAPARIN SODIUM 100 MG/ML DISP.SYRIN SQ SCH ×2 (08:21→21:01)
[2018-11-13] MEDS: METOPROLOL TARTRATE 25 MG TABLET PO SCH ×2 (08:22→16:27)
[2018-11-13] MEDS: busPIRone 5 MG TABLET PO SCH ×2 (08:22→16:26)
[2018-11-13] MEDS: AMLODIPINE BESYLATE 10 MG TABLET PO SCH (08:22)
[2018-11-13] MEDS: MULTIVITAMINS,THERAGRAN 1 UDTAB TABLET PO SCH (08:22)
[2018-11-13] MEDS ORDERED: APIXABAN 5 MG TABLET PO SCH (09:00)
[2018-11-13] MEDS: MORPHINE SULFATE INJ 2 MG/ML DISP.SYRIN IV PRN ×3 (12:33→22:00)
[2018-11-13 16:00] VITALS: BP 125/80
[2018-11-13] MEDS: LACTOBACILLUS RHAMNOSUS GG 1 EACH CAP.SPRINK PO SCH (16:26)
--- NOTE | 2018-11-13 16:30 | NUR ---
MS/RN LEFT FOR HIDA SCAN IN STABLE CONDITION.
--- NOTE | 2018-11-13 16:59 | NUR ---
NM: HIDA SCAN WAS COMPLETED. TECH:RB.
--- NOTE | 2018-11-13 17:50 | NUR ---
MS/RN RETURNED FROM HIDA SCAN IN STABLE CONDITION.
--- NOTE | 2018-11-13 18:19 | NUR ---
MS/RN CLOSING NOTE PATIENT IN BED IN STABLE CONDITION. A/O X 4. NO SIGNS OF ACUTE DISTRESS. COMPLAIN OF PAIN TO RIGHT UPPER ABDOMEN AREA, PRN MORPHINE ADMINISTER AT 1810, TOLERATING WELL. ALL NEEDS ATTENDED TO AT THIS TIME. CALL LIGHT WITHIN REACH. WILL ENDORSE TO NEXT SHIFT FOR CONTINUITY OF CARE.
--- NOTE | 2018-11-13 19:30 | NUR ---
MS RN NOTES RECEIVED RESTING COMFORTABLY ON BED,A/O X4,O2 IN USED AT 2L/NC,BREATHING NON LABORED.RT AT BEDSIDE TO ADMINISTERED HHT SCHEDULED..SALINE LOCK RIGHT AC INTACT AND PATENT.CALL LIGHT IN REACH,NEEDS ANTICIPATED.
[2018-11-13 20:00] VITALS: BP 140/90
[2018-11-13] MEDS: CEFTRIAXONE 1 G in IV D5W 50 ML IV SCH (20:57)
[2018-11-13] MEDS: AZITHROMYCIN 500 MG in IV D5W 250 ML IV SCH (21:49)
[2018-11-13] MEDS: ATORVASTATIN 10 MG TABLET PO SCH (21:50)
--- NOTE | 2018-11-13 22:00 | NUR ---
MS RN NOTES PAIN MANAGEMENT C/O PAIN RIGHT UPPER ABDOMEN 8/10 ON PAIN SCALE.MEDICATED WITH MORPHINE 2MG IV ORDERED FOR SEVERE PAIN
[2018-11-14] MEDS: MORPHINE SULFATE INJ 2 MG/ML DISP.SYRIN IV PRN ×5 (01:50→18:32)
--- NOTE | 2018-11-14 01:50 | NUR ---
MS RN NOTES PAIN MANAGEMENT AWAKE.C/O RIGHT UPPER QUADRANT PAIN 9/10 ON PAIN SCALE,MEDICATED WITH MORPHINE 2MG IV ORDERED.
[2018-11-14] MEDS: ALBUTEROL FS 2.5 MG/0.5 ML VIAL.NEB NEB SCH ×6 (03:30→23:20)
--- NOTE | 2018-11-14 05:48 | NUR ---
MS RN NOTES PAIN MANAGEMENT AWAKE,WITH RIGHT UPPER ABDOMINAL PAIN 9/10 ON PAIN SCALE.MORPHINE 2MG IV GIVEN ORDERED.
--- NOTE | 2018-11-14 06:22 | NUR ---
MS RN NOTES ON BED SLEEPING,PAIN MANAGEMENT EFFECTIVE.SALINE LOCK RIGHT AC INTACT AND PATENT.IN NO ACUTE DISTRESS.WILL ENDORSE TO CAMILLA RN FOR HEIDY
[2018-11-14 06:28] LABS: BASOPHILS # (AUTO) 0.1 /CMM (0.0-0.2); BASOPHILS % (AUTO) 0.8 % (0.0-2.0); EOSINOPHILS % (AUTO) 5.1 % (0.0-6.0); HEMATOCRIT 47 % (39-51); HEMOGLOBIN 15.7 g/dL (13.5-17.5); LYMPHOCYTES # (AUTO) 1.3 /CMM (0.8-4.8); LYMPHOCYTES % (AUTO) 18.5 % (20.0-44.0); MEAN CORPUSCULAR HGB CONC 34 g/dl (31.0-36.0); MEAN CORPUSCULAR VOLUME 91 fL (80-96); MONOCYTES # (AUTO) 0.7 /CMM (0.1-1.30); MONOCYTES % (AUTO) 9.8 % (2.0-12.0); NEUTROPHILS # (AUTO) 4.6 /CMM (1.8-8.9); NEUTROPHILS % (AUTO) 65.8 % (43.0-81.0); PLATELET COUNT (AUTO) 246 /CMM (150-450); RED BLOOD CELL COUNT(AUTO) 5.08 MIL/uL (4.5-6.0)
[2018-11-14 07:00] LABS: CALCIUM, SERUM 8.5 mg/dL (8.5-10.1); CREATININE 0.8 mg/dL (0.6-1.3); PHOSPHORUS 3.8 mg/dL (2.5-4.9); POTASSIUM 3.9 mmol/L (3.5-5.1)
--- NOTE | 2018-11-14 07:30 | NUR ---
RN MS OPENING NOTES Patient received on room air, no sob noted. No s/s of pain at this time, remains a/o x4. Patient stating that he has minor pain and a headache. Bed at the lowest setting, call light within reach.
[2018-11-14] MEDS: ACETAMINOPHEN 325 MG TABLET PO PRN (07:33)
[2018-11-14 08:00] VITALS: BP 136/105
[2018-11-14] MEDS: ENOXAPARIN SODIUM 100 MG/ML DISP.SYRIN SQ SCH ×2 (08:43→21:13)
[2018-11-14] MEDS: AMLODIPINE BESYLATE 10 MG TABLET PO SCH (08:46)
[2018-11-14] MEDS: METOPROLOL TARTRATE 25 MG TABLET PO SCH ×2 (08:46→16:55)
[2018-11-14] MEDS: busPIRone 5 MG TABLET PO SCH ×2 (08:46→16:55)
[2018-11-14] MEDS: LACTOBACILLUS RHAMNOSUS GG 1 EACH CAP.SPRINK PO SCH ×2 (08:46→16:55)
[2018-11-14] MEDS: MULTIVITAMINS,THERAGRAN 1 UDTAB TABLET PO SCH (08:46)
[2018-11-14] MEDS: FLUTICASONE/VILANTEROL 1 EACH BLST.W.DEV IH SCH ×2 (08:47→16:56)
[2018-11-14] MEDS: ISOSORBIDE DINITRATE (20MG) 20 MG TABLET PO SCH ×2 (08:54→16:55)
[2018-11-14] MEDS: HYDROCODONE/APAP 5/325MG 1 EACH TABLET PO PRN ×2 (08:54→21:24)
[2018-11-14] MEDS: hydrALAZINE HCL 50 MG TABLET PO SCH ×3 (08:57→16:56)
[2018-11-14 16:00] VITALS: BP 124/86
--- NOTE | 2018-11-14 17:56 | NUR ---
RN MS CLOSING NOTES Patient remains on room air, no sob noted. Patient remains a/o x4. AC #18 remains patent. Patient lying down on his bed comfortably. No complaints or any discomfort reported by patient all shift. Bed at the lowest setting, call light within reach, will give report to NOC RN for HEIDY bedside.
--- NOTE | 2018-11-14 19:16 | NUR ---
MS RN NOTES RECEIVED ON BED SOUND ASLEEP,BREATHING REGULAR,SALINE LOCK RIGHT AC INTACT AND PATENT.ABLE TO AMBULATE.CALL LIGHT IN REACH,NEEDS ANTICIPATED.
[2018-11-14 20:08] VITALS: BP 137/77
[2018-11-14] MEDS: CEFTRIAXONE 1 G in IV D5W 50 ML IV SCH (20:32)
[2018-11-14 20:50] VITALS: BP 137/77
[2018-11-14] MEDS: AZITHROMYCIN 500 MG in IV D5W 250 ML IV SCH (21:10)
[2018-11-14] MEDS: ATORVASTATIN 10 MG TABLET PO SCH (21:14)
--- NOTE | 2018-11-14 21:24 | NUR ---
MS RN NOTES C/O RIGHT UPPER QUADRANT PAIN 5/10 ON PAIN SCALE,NORCO 5/325,1TAB PO GIVEN PER PATIENT REQUEST.
[2018-11-15] MEDS: MORPHINE SULFATE INJ 2 MG/ML DISP.SYRIN IV PRN (01:27)
--- NOTE | 2018-11-15 01:27 | NUR ---
MS RN NOTES AWAKE,IN PAIN 9/10 ON PAIN SCALE,MORPHINE 2MG IV GIVEN FOR SEVERE PAIN
[2018-11-15] MEDS: ALBUTEROL FS 2.5 MG/0.5 ML VIAL.NEB NEB SCH ×3 (03:11→11:40)
--- NOTE | 2018-11-15 06:10 | NUR ---
MS RN NOTES LAYING COMFORTABLY ON BED,PAIN MANAGEMENT EFFECTIVE.SALINE LOCK RIGHT AC REMAINS PATENT.POSSIBLE DISCHARGE TODAY.IN NO ACUTE DISTRESS.WILL ENDORSE TO DAY NURSE FOR HEIDY.
[2018-11-15] MEDS: HYDROCODONE/APAP 5/325MG 1 EACH TABLET PO PRN (06:43)
--- NOTE | 2018-11-15 06:43 | NUR ---
MS RN NOTES C/O ABDOMINAL PAIN 6/10 ON PAIN SCALE,NORCO 5/325MG,1TAB PO GIVEN ORDERED.
--- NOTE | 2018-11-15 07:53 | NUR ---
MS RN OPENING NOTES RECEIVED PATIENT IN BED ASLEEP BUT AROUSABLE. ALERT AND ORIENTED X4. DENIES ANY C/O PAIN NOR DISCOMFORT AT THIS TIME. RIGHT AC G#20 INTACT AND PATENT. NO SOB OBSERVED, ON ROOM AIR. CALL LIGHT WITHIN REACH. BED IN LOWEST POSITION. BED SIDERAILS UPX2.
[2018-11-15 07:59] VITALS: BP 127/71
[2018-11-15] MEDS: FLUTICASONE/VILANTEROL 1 EACH BLST.W.DEV IH SCH (08:43)
[2018-11-15] MEDS: LACTOBACILLUS RHAMNOSUS GG 1 EACH CAP.SPRINK PO SCH (08:45)
[2018-11-15] MEDS: ENOXAPARIN SODIUM 100 MG/ML DISP.SYRIN SQ SCH (08:45)
[2018-11-15] MEDS: AMLODIPINE BESYLATE 10 MG TABLET PO SCH (08:46)
[2018-11-15] MEDS: MULTIVITAMINS,THERAGRAN 1 UDTAB TABLET PO SCH (08:46)
[2018-11-15] MEDS: METOPROLOL TARTRATE 25 MG TABLET PO SCH (08:46)
[2018-11-15] MEDS: busPIRone 5 MG TABLET PO SCH (08:47)
[2018-11-15] MEDS: ISOSORBIDE DINITRATE (20MG) 20 MG TABLET PO SCH (08:47)
[2018-11-15] MEDS: hydrALAZINE HCL 50 MG TABLET PO SCH ×2 (08:51→13:00)
[2018-11-15] MEDS ORDERED: PANT40TA2 PO (10:06)
[2018-11-15] MEDS ORDERED: IBUP-1955 PO (10:06)
[2018-11-15] MEDS ORDERED: ACET-907 PO (10:06)
[2018-11-15 13:00] VITALS: BP 126/87
[2018-11-15] MEDS: ACETAMINOPHEN 325 MG TABLET PO PRN (13:00)
--- NOTE | 2018-11-15 13:40 | NUR ---
MS MOVING VAN DRIVER NOTES PATIENT ALERT AND AWAKE, ORIENTED X4. NO C/O SOB NOR DISCOMFORT. DISCHARGED TO HOME TODAY ACCOMPANIED BY GIRLFRIEND IN PRIVATE CAR. DISCHARGED TEACHING DONE AND VERBALIZES UNDERSTANDING. DISCHARGE INSTRUCTIONS AND PACKET GIVEN TO PATIENT. DENIES ANY C/O PAIN NOR DISCOMFORT. SL RIGHT AC G#20 REMOVED WITH CATHETER TIP INTACT WITHOUT S/S OF COMPLICATIONS. PATIENT LEFT IN STABLE CONDITION.
== END 2018-11-15 13:40 | disposition home or self-care (01) | DRG 444 ==
LOC: ER 17:36 → TELE 20:55 → MED 11-13 08:45
PROVIDERS: ADMIT Internal Medicine; ATTEND Nurse Practitioner Acute Care
DX: K80.20 Calculus of gallbladder without cholecystitis without obstruction (principal); J96.21 Acute and chronic respiratory failure with hypoxia; J98.11 Atelectasis; Z68.41 Body mass index [BMI] 40.0-44.9, adult; E66.01 Morbid (severe) obesity due to excess calories; E78.5 Hyperlipidemia, unspecified; I10 Essential (primary) hypertension; Z86.711 Personal history of pulmonary embolism; G47.33 Obstructive sleep apnea (adult) (pediatric); Z79.01 Long term (current) use of anticoagulants; F41.9 Anxiety disorder, unspecified
CPT/HCPCS: 36415; 71045-TC; 76700-TC; 78226; 80048-TC; 80053-TC; 80061-TC; 83690-TC; 83735-TC; 83880; 84100-TC; 84443-TC; 84484-TC; 85025-TC; 85378-TC; 85730-TC; 87081-TC; 93307-TC; 94799-TC; A9537; G0378; J0456; J0696; J1650; J2270; J2405; J7040; J7050; J7060; Q9967

== ENCOUNTER 2018-12-18 12:47 | Emergency (ER) | payer SELFPAY ==
[~2018-12-18] VITALS: Ht 177.8 cm; Wt 122.5 kg
[~2018-12-18 12:47] MED LIST changes: +ACET-907 PO; +APIX5TAB PO; -CHOL200026 PO; -CITA10TA17 PO; -CLON0.5T12 PO; +FLUT1BLS IH; +IBUP-1955 PO; -LISI10TA5 PO; -LISI2.5T2 PO; -METO25TA20 PO; +METO25TA6 PO; +MULT-24 PO; +PANT40TA2 PO; -VALS80TA2 PO; -WARF4TAB41 PO; -WARF6TAB23 PO
--- NOTE | 2018-12-18 13:00 | NUR ---
CAME IN FOR WORSENING SOB,RUQ ABDOMINAL PAIN X 2 WEEKS. RECENTLY DISCHARGE FOR PNA. TO ER BED 7, HOOKED TO MONITOR, CHANGED TO GOWN, PROVIDED W WARM BLANKET, AWAITING MD SANON.
--- NOTE | 2018-12-18 13:20 | NUR ---
DR BLAS AT BEDSIDE
[2018-12-18 13:36] LABS: BASOPHILS # (AUTO) 0.1 /CMM (0.0-0.2); BASOPHILS % (AUTO) 0.7 % (0.0-2.0); EOSINOPHILS % (AUTO) 3.3 % (0.0-6.0); HEMATOCRIT 50 % (39-51); LYMPHOCYTES # (AUTO) 1.4 /CMM (0.8-4.8); LYMPHOCYTES % (AUTO) 15.1 % (20.0-44.0); MEAN CORPUSCULAR HGB CONC 34 g/dl (31.0-36.0); MEAN CORPUSCULAR VOLUME 90 fL (80-96); MONOCYTES # (AUTO) 0.7 /CMM (0.1-1.30); NEUTROPHILS # (AUTO) 6.6 /CMM (1.8-8.9); NEUTROPHILS % (AUTO) 72.9 % (43.0-81.0); PLATELET COUNT (AUTO) 259 /CMM (150-450); RED BLOOD CELL COUNT(AUTO) 5.57 MIL/uL (4.5-6.0); WHITE BLOOD COUNT (AUTO) 9.1 K/uL (4.3-11.0)
[2018-12-18 13:45] LABS: CALCIUM, SERUM 8.8 mg/dL (8.5-10.1); CARBON DIOXIDE 27 mmol/L (21-32); CHLORIDE 104 mmol/L (98-107); CREATININE 1.1 mg/dL (0.6-1.3); GLUCOSE 183 mg/dL (74-106); POTASSIUM 3.5 mmol/L (3.5-5.1); SODIUM SERUM 141 mmol/L (136-145); UREA NITROGEN, BLOOD 15 mg/dL (7-18)
[2018-12-18 13:58] LABS: B-TYPE NATRIURETIC PEPTIDE 21 PG/ML (0-125)
--- NOTE | 2018-12-18 14:05 | NUR ---
DR JONES AT BEDSIDE
[2018-12-18] MEDS ORDERED: MORPHINE SULFATE INJ 2 MG/ML DISP.SYRIN ONE (14:09)
[2018-12-18] MEDS ORDERED: ONDANSETRON HCL/PF 4 MG/2 ML VIAL ONE (14:09)
[2018-12-18] MEDS ORDERED: MORPHINE SULFATE INJ 4 MG/ML DISP.SYRIN ONE (14:10)
[2018-12-18] MEDS ORDERED: IBUP-1955 PO (14:26)
[2018-12-18] MEDS ORDERED: PANT40TA2 PO (14:26)
[2018-12-18] MEDS ORDERED: ONDANSETRON HCL/PF - ER 4 MG/2 ML VIAL IV ONE (14:30)
[2018-12-18] MEDS ORDERED: MORPHINE SULFATE INJ 2 MG/ML DISP.SYRIN IV ONE (14:30)
[2018-12-18] MEDS ORDERED: CT SWABBABLE VALVE TRANS SET 1 EA INFUS.SET MC ONE (14:33)
[2018-12-18] MEDS ORDERED: IV NS 0.9% 250 ML IV ONE (14:33)
[2018-12-18] MEDS ORDERED: IOHEXOL-350 100 ML VIAL IV ONE (14:33)
[2018-12-18 14:47] LABS: BILIRUBIN,DIRECT 0.1 mg/dL (0.0-0.2); BILIRUBIN,TOTAL 0.5 mg/dL (0.2-1.0)
[2018-12-18 14:48] LABS: TOTAL PROTEIN, SERUM 7.6 g/dL (6.4-8.2)
[2018-12-18] MEDS ORDERED: HYDROMORPHONE 1 MG/1 ML DISP.SYRIN ONE ×2 (14:58→17:56)
[2018-12-18] MEDS ORDERED: HYDROMORPHONE 1 MG/1 ML DISP.SYRIN IV ONE ×2 (15:00→18:00)
[2018-12-18 15:01] LABS: ALBUMIN 3.5 g/dL (3.4-5.0)
--- NOTE | 2018-12-18 16:19 | NUR ---
PT WHEELED OUT VIA [facility] FOR CT SCAN
[2018-12-18] MEDS ORDERED: IV NS 0.9% 1,000 ML BAG IV ONE (16:30)
[2018-12-18] MEDS ORDERED: METF-440 PO (18:19)
[2018-12-18] MEDS ORDERED: GABA-532 PO (18:19)
[2018-12-18 18:32] LABS: ABG BASE EXCESS 3.7 mmol/L; ABG OXYGEN SATURATION 92.4 % (92.0-98.5); ABG PCO2 49.8 mmHg (35.0-45.0); ABG PH 7.395 (7.350-7.450); ABG PO2 64.6 mmHg (75.0-100.0); AaDO2 105.3 mmHg; COHb 0.7 % (0.5-1.5); MetHb 0.3 % (0.0-1.5); O2Hb 91.5 % (94.0-97.0); SITE, ABG Left Radial; VENT MODE, BG Nasal Cannula
--- NOTE | 2018-12-18 18:55 | NUR ---
IV removed. Catheter intact and site benign. Pressure and 4x4 applied to site. No bleeding noted.
--- NOTE | 2018-12-18 19:00 | NUR ---
Patient discharged to home in stable condition. Written and verbal after care instructions given. Patient verbalizes understanding of instruction.
[2018-12-18 19:01] VITALS: BP 159/105
== END 2018-12-18 19:04 | disposition home or self-care (01) ==
LOC: ER 12:47
DX: R07.89 Other chest pain (principal); R10.11 Right upper quadrant pain; R00.0 Tachycardia, unspecified; I10 Essential (primary) hypertension; Z86.711 Personal history of pulmonary embolism; Z60.2 Problems related to living alone; Z79.84 Long term (current) use of oral hypoglycemic drugs; Z79.899 Other long term (current) drug therapy
CPT/HCPCS: 36415; 36600 ×2; 71045; 71275; 74176; 80048; 80076; 82803; 83690; 83880; 84484; 85025; 85378; 93005; 96374; 96375; 96376; 99284; J1170 ×2; J2270 ×2; J2405; J7030; J7050; Q9967

== ENCOUNTER 2019-01-11 14:31 | Inpatient (IN) | payer SELFPAY ==
[~2019-01-11] VITALS: Ht 175.3 cm; Wt 133.4 kg
[~2019-01-11 14:31] MED LIST changes: -ACET-907 PO; -BUSP5TAB3 PO; +GABA-532 PO; +METF-440 PO; -SUCR1TAB PO
--- NOTE | 2019-01-11 14:31 | NUR ---
"RUQ PAIN X 2 DAYS" PT AAOX4, -SOB, NAD NOTED, PT ON MONITOR, VSS, PENDING ER PROVIDER EVAL
[2019-01-11] MEDS ORDERED: IV NS 0.9% 1,000 ML BAG IV ONE (15:30)
[2019-01-11] MEDS ORDERED: MORPHINE SULFATE INJ 2 MG/ML DISP.SYRIN IV ONE ×2 (15:30→16:30)
[2019-01-11] MEDS ORDERED: ONDANSETRON HCL/PF 4 MG/2 ML VIAL IV ONE (15:30)
[2019-01-11] MEDS ORDERED: MORPHINE SULFATE INJ 4 MG/ML DISP.SYRIN ONE ×2 (15:38→16:24)
[2019-01-11] MEDS ORDERED: ONDANSETRON HCL/PF 4 MG/2 ML VIAL ONE ×2 (15:38→20:08)
--- NOTE | 2019-01-11 15:47 | NUR ---
PIV STARTED, BLOOD COLLECTED AND SPECIMEN SENT TO LAB
[2019-01-11 15:53] LABS: BASOPHILS # (AUTO) 0.1 /CMM (0.0-0.2); BASOPHILS % (AUTO) 1.1 % (0.0-2.0); EOSINOPHILS % (AUTO) 4.2 % (0.0-6.0); HEMATOCRIT 49 % (39-51); HEMOGLOBIN 16.6 g/dL (13.5-17.5); LYMPHOCYTES # (AUTO) 1.5 /CMM (0.8-4.8); LYMPHOCYTES % (AUTO) 19.5 % (20.0-44.0); MEAN CORPUSCULAR HGB CONC 34 g/dl (31.0-36.0); MEAN CORPUSCULAR VOLUME 92 fL (80-96); MONOCYTES # (AUTO) 0.8 /CMM (0.1-1.30); MONOCYTES % (AUTO) 10.4 % (2.0-12.0); NEUTROPHILS # (AUTO) 5.1 /CMM (1.8-8.9); NEUTROPHILS % (AUTO) 64.8 % (43.0-81.0); PLATELET COUNT (AUTO) 274 /CMM (150-450); RED BLOOD CELL COUNT(AUTO) 5.31 MIL/uL (4.5-6.0); WHITE BLOOD COUNT (AUTO) 7.8 K/uL (4.3-11.0)
[2019-01-11 16:00] LABS: CALCIUM, SERUM 8.9 mg/dL (8.5-10.1); CARBON DIOXIDE 28 mmol/L (21-32); CHLORIDE 106 mmol/L (98-107); CREATININE 0.9 mg/dL (0.6-1.3); GLUCOSE 134 mg/dL (74-106); POTASSIUM 3.4 mmol/L (3.5-5.1); SODIUM SERUM 142 mmol/L (136-145); UREA NITROGEN, BLOOD 11 mg/dL (7-18)
[2019-01-11 16:18] LABS: ALANINE AMINOTRANSFERASE 41 U/L (12-78); ALBUMIN 3.7 g/dL (3.4-5.0); ALKALINE PHOSPHATASE 97 U/L (46-116); ASPARTATE AMINOTRANSFERASE 24 U/L (15-37); BILIRUBIN,DIRECT 0.1 mg/dL (0.0-0.2); BILIRUBIN,TOTAL 0.4 mg/dL (0.2-1.0); LIPASE 86 U/L (73-393); TOTAL PROTEIN, SERUM 7.5 g/dL (6.4-8.2)
--- NOTE | 2019-01-11 17:21 | NUR ---
TURNED IN MOVE SHEET
[2019-01-11] MEDS ORDERED: HYDROMORPHONE INJ 2 MG/ML DISP.SYRIN IV ONE ×2 (18:00→20:30)
[2019-01-11] MEDS ORDERED: HYDROMORPHONE 1 MG/1 ML DISP.SYRIN ONE ×2 (18:02→20:05)
[2019-01-11 20:00] VITALS: BP 153/107
--- NOTE | 2019-01-11 20:11 | NUR ---
ROOM 304-2
[2019-01-11] MEDS ORDERED: ONDANSETRON HCL/PF 4 MG/2 ML VIAL IVP ONE (20:30)
--- NOTE | 2019-01-11 20:47 | NUR ---
REPORT GIVEN TO ARYA MARIANO FOR HEIDY; PT WILL BE TRANPOSRTED TO 3RD FLOOR VIA ACLS PROTOCOL
[2019-01-11 21:00] VITALS: BP 153/107
--- NOTE | 2019-01-11 21:00 | NUR ---
RN OPEN NOTES RECEIVED PATIENT FROM ER VIA [facility] WITH FAMILY AT BEDSIDE. A/OX4. NO SIGNS OF DISTRESS OR DISCOMFORT. BREATHING EVEN AND UNLABORED. IV ACCESS IN L HAND, PATENT AND INTACT, NO SIGNS OF REDNESS OR INFILTRATION. STATES PAIN IS 8/10 IN RUQ. ORIENTED PATIENT TO UNIT AND ROOM. BED IN LOW LOCKED POSITION WITH SIDE RAILS X2. CALL LIGHT WITHIN REACH. WILL CONTINUE TO MONITOR.
[2019-01-11] MEDS ORDERED: IBUPROFEN 600 MG TABLET PO PRN (21:30)
[2019-01-11] MEDS ORDERED: Z GUARD REMEDY 2 OZ OINT TP PRN (21:30)
[2019-01-11] MEDS ORDERED: MAG HYDROX/AL HYDROX/SIMETH 30 ML UDC PO PRN (21:30)
[2019-01-11] MEDS ORDERED: HYDROCODONE/APAP 5/325MG 1 EACH TABLET PO PRN (21:30)
[2019-01-11] MEDS ORDERED: ZOLPIDEM TARTRATE 5 MG TABLET PO PRN (21:30)
[2019-01-11] MEDS ORDERED: MAGNESIUM HYDROXIDE 30 ML UDC PO PRN (21:30)
[2019-01-11] MEDS: IV NS 0.9% 1,000 ML IV SCH (22:43)
[2019-01-11] MEDS: ATORVASTATIN 10 MG TABLET PO SCH (22:44)
[2019-01-11] MEDS ORDERED: HYDROMORPHONE INJ 0.5 MG/0.5 ML SYRINGE IV PRN (23:00)
[2019-01-11] MEDS: HYDROMORPHONE 1 MG/1 ML DISP.SYRIN IV PRN (23:38)
--- NOTE | 2019-01-11 23:38 | NUR ---
RN NOTES ADMINISTERED DILAUDID .5MG ORDERED FOR RUQ 01/25 AT PATIENT REQUEST. VSS. WILL CONTINUE TO MONITOR.
[2019-01-12] MEDS: HYDROMORPHONE 1 MG/1 ML DISP.SYRIN IV PRN ×4 (03:19→19:48)
--- NOTE | 2019-01-12 03:19 | NUR ---
RN NOTES ADMINISTERED DILAUDID .5MG ORDERED FOR RUQ 01/25 AT PATIENT REQUEST. VSS. WILL CONTINUE TO MONITOR.
[2019-01-12] MEDS: ACETAMINOPHEN 325 MG TABLET PO PRN ×2 (04:26→13:03)
[2019-01-12 06:33] LABS: BASOPHILS # (AUTO) 0.1 /CMM (0.0-0.2); EOSINOPHILS % (AUTO) 4.5 % (0.0-6.0); HEMATOCRIT 46 % (39-51); HEMOGLOBIN 15.5 g/dL (13.5-17.5); LYMPHOCYTES # (AUTO) 1.8 /CMM (0.8-4.8); LYMPHOCYTES % (AUTO) 24.1 % (20.0-44.0); MEAN CORPUSCULAR HGB CONC 34 g/dl (31.0-36.0); MEAN CORPUSCULAR VOLUME 92 fL (80-96); MONOCYTES # (AUTO) 0.7 /CMM (0.1-1.30); MONOCYTES % (AUTO) 9.6 % (2.0-12.0); NEUTROPHILS # (AUTO) 4.4 /CMM (1.8-8.9); NEUTROPHILS % (AUTO) 60.8 % (43.0-81.0); PLATELET COUNT (AUTO) 237 /CMM (150-450); RED BLOOD CELL COUNT(AUTO) 4.97 MIL/uL (4.5-6.0); WHITE BLOOD COUNT (AUTO) 7.3 K/uL (4.3-11.0)
[2019-01-12] MEDS: ONDANSETRON HCL/PF 4 MG/2 ML VIAL IVP PRN ×3 (06:34→20:32)
--- NOTE | 2019-01-12 07:11 | NUR ---
RN CLOSING NOTES PATIENT RESTING IN BED, EASILY AROUSABLE. A/OX4. NO SIGNS OF DISTRESS OR DISCOMFORT. BREATHING EVEN AND UNLABORED. IV ACCESS IN L HAND, PATENT AND INTACT, NO SIGNS OF REDNESS OR INFILTRATION. ALL NEEDS MET. NO SIGNIFICANT CHANGES THROUGH THE NIGHT. BED IN LOW LOCKED POSITION WITH SIDE RAILS X2. CALL LIGHT WITHIN REACH. ENDORSED TO AM SHIFT FOR HEIDY.
--- NOTE | 2019-01-12 07:23 | NUR ---
MS RN OPENING NOTES RECEIVED PATIENT AWAKE IN BED IN NO ACUTE SIGNS OF DISTRESS. A/O X 4. VERBALLY RESPONSIVE WITH C/O PAIN ON RIGHT UPPER QUADRANT PAIN BUT TOLERABLE AT THIS TIME. ON 02 VIA N/C AT 2LPM, BREATHING EVEN AND UNLABORED. IV ACCESS IN LEFT HAND PATENT AND INTACT WITH IVF OF NS @ 100ML/HR INFUSING WELL, NO S/S REDNESS OR INFILTRATION. SAFETY MEASURES IN PLACE. BED IN LOW LOCKED POSITION WITH SIDE RAILS UPX2. CALL LIGHT WITHIN REACH. WILL CONTINUE TO MONITOR
[2019-01-12] MEDS: PANTOPRAZOLE 40 MG TABLET.DR PO SCH (07:58)
[2019-01-12 08:00] VITALS: BP 145/95
--- NOTE | 2019-01-12 08:00 | NUR ---
RN NOTES/PAIN MANAGEMENT PT C/O OF SHARP THROBBING RUQ PAIN WITH SCALE OF 9/10, PRN DILAUDID 0.5MG IVP ADMINISTERED AT 0756. WILL CONTINUE TO MONITOR AND REASSESS.
[2019-01-12 08:31] LABS: CALCIUM, SERUM 7.9 mg/dL (8.5-10.1); CREATININE 0.9 mg/dL (0.6-1.3); MAGNESIUM 1.9 mg/dL (1.8-2.4); PHOSPHORUS 4.2 mg/dL (2.5-4.9); POTASSIUM 3.7 mmol/L (3.5-5.1)
[2019-01-12] MEDS: GABAPENTIN 100 MG CAPSULE PO SCH ×3 (08:35→17:27)
[2019-01-12] MEDS: METOPROLOL TARTRATE 50 MG TABLET PO SCH ×2 (08:36→17:27)
[2019-01-12] MEDS: METFORMIN 500 MG TABLET PO SCH ×2 (08:36→17:27)
[2019-01-12] MEDS: AMLODIPINE BESYLATE 10 MG TABLET PO SCH (08:36)
[2019-01-12] MEDS: MULTIVITAMINS,THERAGRAN 1 UDTAB TABLET PO SCH (08:36)
[2019-01-12] MEDS: FLUTICASONE/VILANTEROL 1 EACH BLST.W.DEV IH SCH ×2 (09:00→18:04)
[2019-01-12] MEDS: IV NS 0.9% 1,000 ML IV SCH ×2 (10:04→18:24)
--- NOTE | 2019-01-12 10:18 | NUR ---
RN NOTES PT PICKED -UP BY NAILA VIA WHEELCHAIR FOR NM HIDA SCAN.
--- NOTE | 2019-01-12 13:09 | NUR ---
RN NOTES PT C/O HEADACHE. PRN TYLENOL 650MG PO GIVEN AT 1303. WILL CONTINUE TO MONITOR PT.
[2019-01-12] MEDS: APIXABAN 5 MG TABLET PO SCH ×2 (14:12→21:54)
--- NOTE | 2019-01-12 14:19 | NUR ---
RN NOTES/PAIN MANAGEMENT PT C/O OF SHARP THROBBING RUQ PAIN WITH SCALE OF 9/10, PRN DILAUDID 0.5MG IVP ADMINISTERED AT 1417. WILL CONTINUE TO MONITOR AND REASSESS.
[2019-01-12 16:00] VITALS: BP 138/88
--- NOTE | 2019-01-12 17:03 | NUR ---
RN NOTES RESULTS OF NM HIDA SCAN CAME AND DR ZUNIGA MADE AWARE. DR ZUNIGA ORDER TO START FULL LIQUIDS DIET FOR PT. WILL CONTINUE TO MONITOR.
--- NOTE | 2019-01-12 18:39 | NUR ---
MS RN CLOSING NOTES PATIENT IN BED RESTING AT MODERATE HIGH BACKREST POSITION. GIRLFRIEND AT BEDSIDE. A/O X 4. ABLE TO MAKE NEEDS KNOWN. AMBULATORY. MAINTAINED ON 02 VIA N/C AT 2LPM, TOLERATING WELL WITH NO SOB NOTED. IV ACCESS IN LEFT HAND G #20 PATENT AND INTACT WITH IVF OF NS @ 100ML/HR INFUSING WELL, NO S/S REDNESS OR INFILTRATIONS NOTED. ALL NEEDS NAD CARE ATTENDED WELL. SAFETY MEASURES IN PLACE. BED IN LOW LOCKED POSITION WITH SIDE RAILS UPX2. CALL LIGHT WITHIN REACH. WILL ENDORSE TO WOOD TOOL MAKER NURSE FOR HEIDY.
[2019-01-12 20:09] VITALS: BP 146/98
[2019-01-12] MEDS: ATORVASTATIN 10 MG TABLET PO SCH (21:54)
[2019-01-13] MEDS: IV NS 0.9% 1,000 ML IV SCH (06:23)
[2019-01-13 06:25] LABS: BASOPHILS # (AUTO) 0.1 /CMM (0.0-0.2); BASOPHILS % (AUTO) 0.6 % (0.0-2.0); HEMATOCRIT 46 % (39-51); HEMOGLOBIN 15.8 g/dL (13.5-17.5); LYMPHOCYTES % (AUTO) 11.5 % (20.0-44.0); MEAN CORPUSCULAR HGB CONC 34 g/dl (31.0-36.0); MEAN CORPUSCULAR VOLUME 91 fL (80-96); MONOCYTES # (AUTO) 0.6 /CMM (0.1-1.30); MONOCYTES % (AUTO) 6.1 % (2.0-12.0); NEUTROPHILS # (AUTO) 7.3 /CMM (1.8-8.9); NEUTROPHILS % (AUTO) 80.8 % (43.0-81.0); PLATELET COUNT (AUTO) 234 /CMM (150-450); RED BLOOD CELL COUNT(AUTO) 5.06 MIL/uL (4.5-6.0); WHITE BLOOD COUNT (AUTO) 9.1 K/uL (4.3-11.0)
--- NOTE | 2019-01-13 06:38 | NUR ---
MS RN NOTES AWAKE & RESPONSIVE. NOT IN ANY DISTRESS. NO SOB NOTED. DENIES ANY PAIN OR DISCOMFORT AT THIS TIME. WITH IVF INFUSING WELL. MONITORED ACCORDINGLY. CALL LIGHT WITHIN REACH. BED IN LOWEST POSITION. SR UP X 2 FOR SAFETY. WILL ENDORSE TO NEXT SHIFT.
[2019-01-13 06:48] LABS: ALBUMIN 3.6 g/dL (3.4-5.0); BILIRUBIN,TOTAL 0.6 mg/dL (0.2-1.0); CALCIUM, SERUM 8.5 mg/dL (8.5-10.1); CREATININE 0.9 mg/dL (0.6-1.3); PHOSPHORUS 3.2 mg/dL (2.5-4.9); POTASSIUM 3.8 mmol/L (3.5-5.1); TOTAL PROTEIN, SERUM 7.3 g/dL (6.4-8.2)
--- NOTE | 2019-01-13 07:13 | NUR ---
MS RN OPENING NOTES RECEIVED PATIENT AWAKE IN BED IN NO ACUTE SIGNS OF DISTRESS. A/O X 4. ABLE TO MAKE NEEDS KNOWN, DENIES PAIN OR ANY DISCOMFORTS AT THIS TIME. ON 02 VIA N/C AT 2LPM, BREATHING EVEN AND UNLABORED. IV ACCESS ON LEFT HAND PATENT AND INTACT WITH IVF OF NS @ 100ML/HR INFUSING WELL, NO REDNESS OR S/S OF INFILTRATIONS NOTED. SAFETY MEASURES IN PLACE. BED IN LOW LOCKED POSITION WITH SIDE RAILS UPX2. CALL LIGHT WITHIN REACH. WILL CONTINUE TO MONITOR
[2019-01-13] MEDS: PANTOPRAZOLE 40 MG TABLET.DR PO SCH (07:34)
[2019-01-13 08:00] VITALS: BP 136/98
[2019-01-13] MEDS: MULTIVITAMINS,THERAGRAN 1 UDTAB TABLET PO SCH (08:32)
[2019-01-13] MEDS: METFORMIN 500 MG TABLET PO SCH ×2 (08:32→16:43)
[2019-01-13] MEDS: FLUTICASONE/VILANTEROL 1 EACH BLST.W.DEV IH SCH ×2 (08:32→16:43)
[2019-01-13] MEDS: METOPROLOL TARTRATE 50 MG TABLET PO SCH ×2 (08:32→16:44)
[2019-01-13] MEDS: GABAPENTIN 100 MG CAPSULE PO SCH ×3 (08:33→16:43)
[2019-01-13] MEDS: AMLODIPINE BESYLATE 10 MG TABLET PO SCH (08:33)
[2019-01-13] MEDS: APIXABAN 5 MG TABLET PO SCH ×2 (08:35→21:24)
[2019-01-13] MEDS: ONDANSETRON HCL/PF 4 MG/2 ML VIAL IVP PRN ×2 (11:48→22:12)
[2019-01-13] MEDS: HYDROMORPHONE 1 MG/1 ML DISP.SYRIN IV PRN ×3 (11:49→22:12)
--- NOTE | 2019-01-13 11:52 | NUR ---
RN NOTES/PAIN MANAGEMENT PT C/O NAUSEA AND SHARP THROBBING RUQ PAIN WITH SCALE OF 9/10, PRN ZOFRAN 4MG/2ML IVP AND DILAUDID 0.5MG IVP ADMINISTERED AT 1149. WILL CONTINUE TO MONITOR AND REASSESS.
[2019-01-13] MEDS: IV NS 0.9% 1,000 ML IV PRN (12:30)
[2019-01-13 16:00] VITALS: BP 139/90
--- NOTE | 2019-01-13 17:54 | NUR ---
RN NOTES/PAIN MANAGEMENT PT COMPLAINED OF SHARP CRUSHING RUQ PAIN WITH SCALE OF 9/10, PRN DILAUDID 0.5MG IVP ADMINISTERED AT 1742. WILL CONTINUE TO MONITOR AND REASSESS.
--- NOTE | 2019-01-13 18:22 | NUR ---
RN NOTES INFORMED DR GARCIA THAT PT NEEDS SURGICAL CONSULT PER DR ZUNIGA. DR GARCIA SAID TO CALL DR AYALA FOR GI CONSULT. CALLED AND SPOKE TO DR AYALA AND INFORMED HIM OF NM HIDA SCAN AND GALL BLADDER ULTRASOUND RESULTS. HE ORDERED TO ADVANCE DIET TOLERATED NOW AND HE WILL COME TO SEE PT TOMORROW. WILL ENDORSE TO INCOMING NIGHT NURSE.
--- NOTE | 2019-01-13 18:42 | NUR ---
MS RN CLOSING NOTES PATIENT IN BED AWAKE A/O X 4. ABLE TO MAKE NEEDS KNOWN. AMBULATORY. ON SUPPLEMENTAL 02 VIA N/C AT 2LPM, TOLERATING WELL WITH NO SOB NOTED THROUGHOUT THE DAY. IV ACCESS ON LEFT HAND G #20 PATENT AND INTACT WITH IVF OF NS @ 100ML/HR INFUSING WELL, NO REDNESS OR INFILTRATIONS NOTED. ALL NEEDS ANDD CARE ATTENDED WELL. SAFETY MEASURES IN PLACE. BED IN LOW LOCKED POSITION WITH SIDE RAILS UPX2. CALL LIGHT WITHIN REACH. WILL ENDORSE TO JOY OPERATOR HELPER NURSE FOR HEIDY.
[2019-01-13 20:52] VITALS: BP 139/76
[2019-01-13] MEDS: ATORVASTATIN 10 MG TABLET PO SCH (21:25)
[2019-01-14] MEDS: ONDANSETRON HCL/PF 4 MG/2 ML VIAL IVP PRN ×3 (04:22→16:21)
[2019-01-14] MEDS: HYDROMORPHONE 1 MG/1 ML DISP.SYRIN IV PRN ×4 (04:22→21:50)
[2019-01-14] MEDS: IV NS 0.9% 1,000 ML IV PRN ×2 (04:23→15:31)
[2019-01-14 06:16] LABS: BASOPHILS # (AUTO) 0.1 /CMM (0.0-0.2); BASOPHILS % (AUTO) 0.6 % (0.0-2.0); EOSINOPHILS % (AUTO) 4.1 % (0.0-6.0); HEMATOCRIT 45 % (39-51); HEMOGLOBIN 15.3 g/dL (13.5-17.5); LYMPHOCYTES # (AUTO) 1.4 /CMM (0.8-4.8); LYMPHOCYTES % (AUTO) 15.7 % (20.0-44.0); MEAN CORPUSCULAR HGB CONC 34 g/dl (31.0-36.0); MEAN CORPUSCULAR VOLUME 92 fL (80-96); MONOCYTES % (AUTO) 10.8 % (2.0-12.0); NEUTROPHILS # (AUTO) 6.3 /CMM (1.8-8.9); NEUTROPHILS % (AUTO) 68.8 % (43.0-81.0); PLATELET COUNT (AUTO) 216 /CMM (150-450); RED BLOOD CELL COUNT(AUTO) 4.92 MIL/uL (4.5-6.0); WHITE BLOOD COUNT (AUTO) 9.2 K/uL (4.3-11.0)
[2019-01-14 06:34] LABS: ALBUMIN 3.4 g/dL (3.4-5.0); BILIRUBIN,TOTAL 0.5 mg/dL (0.2-1.0); CALCIUM, SERUM 8.2 mg/dL (8.5-10.1); CREATININE 0.9 mg/dL (0.6-1.3); MAGNESIUM 1.9 mg/dL (1.8-2.4); PHOSPHORUS 3.7 mg/dL (2.5-4.9); POTASSIUM 3.7 mmol/L (3.5-5.1)
--- NOTE | 2019-01-14 07:15 | NUR ---
MS RN OPENING NOTES RECEIVED PT IN BED, AWAKE. A/O X3-4. PT ON SUPPLEMENTARY OXYGEN AT 2L VIA NC, WITH NO ACUTE RESPIRATORY DISTRESS NOTED. PT DENIES PAIN OR ANY DISCOMFORT AT THIS MOMENT. PT AWARE WITH PLAN OF CARE. PT DENIES ANY QUESTIONS OR CONCERNS AT THIS TIME. IVF NS AT 100ML/HR TO LEFT HAND G20, INTACT AND FLUID INFUSING WELL. PT KEPT COMFORTABLE. PT'S BED IN LOWEST, LOCKED POSITION WITH SRX3. CALL LIGHT KEPT WITHIN REACH. WILL CONTINUE PLAN OF CARE.
[2019-01-14] MEDS: PANTOPRAZOLE 40 MG TABLET.DR PO SCH (07:58)
[2019-01-14 08:00] VITALS: BP_SYST 156
[2019-01-14] MEDS: AMLODIPINE BESYLATE 10 MG TABLET PO SCH (08:00)
[2019-01-14] MEDS: MULTIVITAMINS,THERAGRAN 1 UDTAB TABLET PO SCH (08:00)
[2019-01-14] MEDS: METFORMIN 500 MG TABLET PO SCH ×2 (08:00→16:20)
[2019-01-14] MEDS: METOPROLOL TARTRATE 50 MG TABLET PO SCH ×2 (08:00→16:20)
[2019-01-14] MEDS: FLUTICASONE/VILANTEROL 1 EACH BLST.W.DEV IH SCH ×2 (08:01→16:20)
[2019-01-14] MEDS: GABAPENTIN 100 MG CAPSULE PO SCH ×3 (08:01→16:22)
[2019-01-14] MEDS: APIXABAN 5 MG TABLET PO SCH ×2 (08:55→21:10)
--- NOTE | 2019-01-14 10:30 | NUR ---
RN NOTES PT SEEN AND EVALUATED BY DR AYALA, ORDERED TO HAVE CT ABD AND PELVIS WITH CONTRAST. PT MADE AWAR. OBTAINED CONSENT AND SIGNED BY PT. WILL CONTINUE PLAN OF CARE.
[2019-01-14] MEDS ORDERED: IOHEXOL-300 100 ML VIAL IV ONE (10:51)
[2019-01-14] MEDS ORDERED: CT SWABBABLE VALVE TRANS SET 1 EA INFUS.SET MC ONE (10:51)
[2019-01-14] MEDS ORDERED: IV NS 0.9% 250 ML IV ONE (10:51)
--- NOTE | 2019-01-14 12:45 | NUR ---
RN NOTES SEEN BY GRINDER SET UP OPERATOR INTERNAL/CANDIDO AMBROCIO, NO ORDERS NOTED AT THIS MOMENT. PT AWARE. WILL CONTINUE TO MONITOR.
--- NOTE | 2019-01-14 15:12 | NUR ---
RN NOTES PT SEEN BY DNP/TS. SX REFRIGERATION SYSTEMS INSTALLER/PS NOTE RECOMMENDED FOR GI CONSULT WITH ERCP. GI MD/JAMIE MADE AWARE. AWAITING FOR RESPONSE. PT AWARE WITH PLAN OF CARE.
[2019-01-14 16:10] VITALS: BP 155/94
--- NOTE | 2019-01-14 16:50 | NUR ---
RN NOTES DR AYALA ANSWERED "NO ERCP AND NO OTHER RECS," DIVISION ROAD SUPERVISOR/PS MADE AWARE OF DR AYALA'S RESPONSE WELL. NO NEW ORDERS FOR NOW. WILL CONTINUE TO MO ITOR PT OVERNIGHT. PT MADE AWARE.
--- NOTE | 2019-01-14 18:00 | NUR ---
RN NOTES PT SEEN BY DR HOLDEN GARCIA WITH ORDER FOR HIDA SCAN WITH CCK TESTING. CONSENT OBTAINED FROM PATIENT. TEJA/PEPE MADE AWARE OF THE PLAN WELL. WILL CONTINUE TO MONITOR.
--- NOTE | 2019-01-14 18:36 | NUR ---
MS RN CLOSING NOTES PT IN BED, AWAKE. A/O X4. AMBULATORY. PT ON SUPPLEMENTARY OXYGEN AT 2L VIA NC, WITH NO ACUTE RESPIRATORY DISTRESS NOTED. PT DENIES PAIN OR ANY DISCOMFORT AT THIS MOMENT. IVF NS AT 100ML/HR TO LEFT HAND G20, INTACT AND FLUID INFUSING WELL. PT KEPT COMFORTABLE. ALL NEEDS AND CARE ATTENDED. PT'S BED IN LOWEST, LOCKED POSITION WITH SRX3. CALL LIGHT KEPT WITHIN REACH. WILL ENDORSE TO INCOMING NIGHT NURSE FOR HEIDY.
--- NOTE | 2019-01-14 19:30 | NUR ---
MS RN OPENING NOTE PATIENT IS RESTING IN BED. A/O X4. ON OXYGEN 2L/MIN. RESPIRATIONS ARE EVEN AND UNLABORED. DENIES PAIN AT THIS TIME. IV ACCESS IN LEFT HAND GAUGE 20 RUNNING NS@ 100ML/HR. IN NO APPARENT DISTRESS. BED IS LOW AND LOCKED, SIDE RAILS UP X2. CALL LIGHT WITHIN REACH. WILL CONTINUE TO MONITOR.
[2019-01-14 20:00] VITALS: BP 98/65
[2019-01-14 20:24] VITALS: BP 98/65
[2019-01-14] MEDS: ATORVASTATIN 10 MG TABLET PO SCH (21:09)
--- NOTE | 2019-01-14 21:50 | NUR ---
MS RN NOTE ADMINISTERED PRN DILAUDID 0.5MG FOR PAIN 8/10 IN ABDOMEN. WAISTED 0.5MG, WITNESSED BY ADRIANA MARIANO.
[2019-01-15] MEDS: HYDROMORPHONE 1 MG/1 ML DISP.SYRIN IV PRN ×5 (03:28→22:56)
[2019-01-15] MEDS: ONDANSETRON HCL/PF 4 MG/2 ML VIAL IVP PRN ×3 (03:28→22:50)
--- NOTE | 2019-01-15 03:30 | NUR ---
MS RN NOTE 0328 ADMINISTERED PRN ZOFRAN 4MG AND PRN DILAUDID 0.5 MG FOR PAIN 8/10 IN THE ABDOMEN. WAISTED 0.5MG OF DILAUDID, WITNESSED BY ADRIANA MARIANO.
[2019-01-15] MEDS: IV NS 0.9% 1,000 ML IV PRN (06:06)
--- NOTE | 2019-01-15 06:58 | NUR ---
MS RN CLOSING NOTE PATIENT IS RESTING IN BED. A/O X4. ON OXYGEN 2L/MIN. RESPIRATIONS ARE EVEN AND UNLABORED. NO SIGNS OF SOB NOTED. DENIES PAIN AT THIS TIME. IV ACCESS MAINTAINED IN LEFT HAND GAUGE 20 RUNNING NS@ 100ML/HR. NO DISTRESS NOTED THROUGHOUT SHIFT. MAINTAINED NPO PAST 0000 FOR HIDA SCAN THIS MORNING. BED IS LOW AND LOCKED, SIDE RAILS UP X2. CALL LIGHT WITHIN REACH. WILL ENDORSE TO NEXT SHIFT FOR HEIDY.
--- NOTE | 2019-01-15 07:25 | NUR ---
MS RN OPENING NOTES RECEIVED PT IN BED, ASLEEP, EASILY AROUSED. A/O X4. PT ON SUPPLEMENTARY OXYGEN AT 2L VIA NC, WITH NO ACUTE RESPIRATORY DISTRESS NOTED. PT DENIES PAIN OR ANY DISCOMFORT AT THIS MOMENT. PT AWARE WITH PLAN OF CARE AND SCHEDULED HIDA SCAN WITH CCK TESTING, CURRENTLY ON NPO. PT DENIES ANY QUESTIONS OR CONCERNS AT THIS TIME. IVF NS AT 100ML/HR TO LEFT HAND G20, INTACT AND FLUID INFUSING WELL. PT KEPT COMFORTABLE. PT'S BED IN LOWEST, LOCKED POSITION WITH SRX3. CALL LIGHT KEPT WITHIN REACH. WILL CONTINUE PLAN OF CARE.
[2019-01-15] MEDS: PANTOPRAZOLE 40 MG TABLET.DR PO SCH ×2 (07:30→22:14)
[2019-01-15 08:00] VITALS: BP 132/73
--- NOTE | 2019-01-15 08:25 | NUR ---
MS RN NOTES PT TRANSPORTED TO [facility] VIA W/C AND LEFT THE ROOM AT 0825.
[2019-01-15] MEDS: MULTIVITAMINS,THERAGRAN 1 UDTAB TABLET PO SCH (09:00)
[2019-01-15] MEDS: GABAPENTIN 100 MG CAPSULE PO SCH ×3 (09:00→16:09)
[2019-01-15] MEDS: FLUTICASONE/VILANTEROL 1 EACH BLST.W.DEV IH SCH ×2 (09:00→16:06)
[2019-01-15] MEDS: APIXABAN 5 MG TABLET PO SCH ×2 (09:00→22:14)
[2019-01-15] MEDS: AMLODIPINE BESYLATE 10 MG TABLET PO SCH (09:00)
[2019-01-15] MEDS: METFORMIN 500 MG TABLET PO SCH ×2 (09:00→16:09)
[2019-01-15] MEDS: METOPROLOL TARTRATE 50 MG TABLET PO SCH ×2 (09:00→16:09)
--- NOTE | 2019-01-15 10:45 | NUR ---
MS RN NOTES PT CAME BACK FROM [facility] S/P HIDA SCAN WITH CCK. LENS DOTTER STATED NPO FOR COPLE HOURS FOR NOW, WILL LET THE NURSE KNOW IF THEY NEEDED TO TAKE ANOTHER IMAGES LATER. PT AWARE. PT STILL ON NPO. WILL CONTINUE PLAN OF CARE. SPOUSE PRESENT AT BEDSIDE.
--- NOTE | 2019-01-15 10:57 | NUR ---
NM:HIDA SCAN WAS COMPLETED. TECH:RB.
--- NOTE | 2019-01-15 11:15 | NUR ---
MS RN NOTES VERIFIED TO [employer] PT CAN HAVE PAIN MEDICINE BEFORE PROCEDURE IF PT IS IN PAIN.
--- NOTE | 2019-01-15 11:30 | NUR ---
MS RN NOTES PT WENT BACK TO [facility] TECH STATED THEY WILL TRY TO TAKE IMAGES AGAIN. PT LEFT THE ROOM AT 1130.
--- NOTE | 2019-01-15 11:58 | NUR ---
MS RN NOTES PT JUST GOT BACK FROM [facility] AGAIN. TECH STATED PT CAN EAT NOW AND STATED "NO GOOD IMAGES WERE TAKEN, IT'S NOW UP TO THE DOCTOR". PT AWARE AND SPOUSE PRESENT AT BEDSIDE. AWAITING FOR RESULTS.
[2019-01-15] MEDS ORDERED: GUAIFENESIN 300 MG/15 ML UDC PO PRN (14:30)
--- NOTE | 2019-01-15 17:02 | NUR ---
MS RN NOTES PT JUST LEFT AGAIN FOR [facility] FOR DELAYED IMAGES FOR HIDA. WILL CONTINUE TO MONITOR.
--- NOTE | 2019-01-15 18:35 | NUR ---
MS RN CLOSING NOTES PT IN BED, ASLEEP, EASILY AROUSED. A/O X4. PT ON SUPPLEMENTARY OXYGEN AT 2L VIA NC, WITH NO ACUTE RESPIRATORY DISTRESS NOTED. PT DENIES PAIN OR ANY DISCOMFORT AT THIS MOMENT. IVF NS AT 100ML/HR TO LEFT HAND G20, INTACT AND FLUID INFUSING WELL. PT KEPT COMFORTABLE. ALL NEEDS AND CARE ATTENDED. PT'S BED IN LOWEST, LOCKED POSITION WITH SRX3. CALL LIGHT KEPT WITHIN REACH. WILL ENDORSE TO INCOMING POWER GENERATION ENGINEER FOR HEIDY.
[2019-01-15 20:00] VITALS: BP 138/85
--- NOTE | 2019-01-15 20:01 | NUR ---
MS RN NOTES RECEIVED PATIENT ASLEEP IN BED WITH NO DISTRESS NOTED. CALL LIGHT WITHIN REACH. PERIPHERAL LINE INTACT AND PATENT. NO C/O PAIN OR DISCOMFORT. ENCOURAGED USE OF CALL LIGHT FOR ASSISTANCE AND VERBALIZED GOOD UNDERSTANDING. BED IN LOW LOCK SETTING. ROOM FREE OF CLUTTER AND BELONGINGS KEPT NEAR BEDSIDE. WILL CONTINUE TO MONITOR.
[2019-01-15] MEDS: ATORVASTATIN 10 MG TABLET PO SCH (22:14)
[2019-01-16] MEDS: IV NS 0.9% 1,000 ML IV PRN (00:25)
[2019-01-16] MEDS: HYDROMORPHONE 1 MG/1 ML DISP.SYRIN IV PRN ×5 (05:57→23:28)
[2019-01-16] MEDS: ONDANSETRON HCL/PF 4 MG/2 ML VIAL IVP PRN ×3 (05:57→19:27)
--- NOTE | 2019-01-16 06:50 | NUR ---
MS RN NOTES PATIENT ASLEEP IN BED WITH NO DISTRESS NOTED. CALL LIGHT WITHIN REACH. ALL DUE MEDS GIVEN ORDERED WITH NO ASE NOTED. NO FURTHER C/O PAIN OR DISCOMFORT. PERIPHERAL LINE INTACT AND PATENT. ROOM FREE OF CLUTTER AND BELONGINGS KEPT NEAR BEDSIDE. BED IN LOW LOCK SETTING. WILL ENDORSE TO ONCOMING SHIFT.
--- NOTE | 2019-01-16 07:17 | NUR ---
MS RN OPENING NOTES RECEIVED PT IN BED, ASLEEP, EASILY AROUSED. A/O X4. PT ON SUPPLEMENTARY OXYGEN AT 2L VIA NC, WITH NO ACUTE RESPIRATORY DISTRESS NOTED. PT DENIES PAIN OR ANY DISCOMFORT AT THIS MOMENT. PT AWARE OF SCHEDULED MRCP TODAY, CURRENTLY ON NPO. PT DENIES ANY QUESTIONS OR CONCERNS AT THIS TIME. IVF NS AT 100ML/HR TO LEFT HAND G20, INTACT AND FLUID INFUSING WELL. PT KEPT COMFORTABLE. PT'S BED IN LOWEST, LOCKED POSITION WITH SRX3. CALL LIGHT KEPT WITHIN REACH. WILL CONTINUE PLAN OF CARE.
[2019-01-16 08:00] VITALS: BP 122/84
--- NOTE | 2019-01-16 09:55 | NUR ---
MS RN NOTES PT WENT DOWN TO HAVE AN MRCP PROCEDURE. LEFT THE UNIT AT 0950.
--- NOTE | 2019-01-16 10:45 | NUR ---
MS RN NOTES PT CAME BACK FROM THE PROCEDURE. PT NOW CAN GO BACK TO SOFT CARDIAC DIET. PT ALSO REQUESTED TO TAKE MISSED MORNING MEDICINES. ADMINISTERED 0900 MEDS LATE PER PT'S REQUEST BECAUSE SAME YESTERDAY HE WASN'T ABLE TO TAKE MORNING MEDICATIONS BECAUSE HE WAS NPO. WLL CONTINUE TO MONITOR THE PT.
[2019-01-16] MEDS: FLUTICASONE/VILANTEROL 1 EACH BLST.W.DEV IH SCH ×2 (11:13→16:31)
[2019-01-16] MEDS: METOPROLOL TARTRATE 50 MG TABLET PO SCH ×2 (11:14→16:30)
[2019-01-16] MEDS: AMLODIPINE BESYLATE 10 MG TABLET PO SCH (11:15)
[2019-01-16] MEDS: GABAPENTIN 100 MG CAPSULE PO SCH ×3 (11:15→16:31)
[2019-01-16] MEDS: METFORMIN 500 MG TABLET PO SCH ×2 (11:16→16:30)
[2019-01-16] MEDS: PANTOPRAZOLE 40 MG TABLET.DR PO SCH ×2 (11:16→21:47)
[2019-01-16] MEDS: MULTIVITAMINS,THERAGRAN 1 UDTAB TABLET PO SCH (11:16)
[2019-01-16] MEDS: APIXABAN 5 MG TABLET PO SCH ×2 (11:23→21:52)
[2019-01-16 14:52] LABS: ALBUMIN 3.5 g/dL (3.4-5.0); BILIRUBIN,DIRECT 0.1 mg/dL (0.0-0.2); BILIRUBIN,TOTAL 0.5 mg/dL (0.2-1.0); TOTAL PROTEIN, SERUM 7.1 g/dL (6.4-8.2)
[2019-01-16 16:00] VITALS: BP 130/61
--- NOTE | 2019-01-16 18:32 | NUR ---
MS RN CLOSING NOTES PT IN BED, AWAKE. A/O X4. PT ON SUPPLEMENTARY OXYGEN AT 2L VIA NC, WITH NO ACUTE RESPIRATORY DISTRESS NOTED. PT DENIES PAIN OR ANY DISCOMFORT AT THIS MOMENT. IVF NS AT 100ML/HR TO LEFT HAND G20, INTACT AND FLUID INFUSING WELL. PT KEPT COMFORTABLE. ALL NEEDS AND CARE ATTENDED. PT'S BED IN LOWEST, LOCKED POSITION WITH SRX3. CALL LIGHT KEPT WITHIN REACH. WILL ENDORSE TO INCOMING NIGHT NURSE FOR HEIDY.
[2019-01-16 20:00] VITALS: BP 146/86
--- NOTE | 2019-01-16 20:00 | NUR ---
MS RN NOTES RECEIVED PATIENT AWAKE IN BED WITH NO DISTRESS NOTED. CALL LIGHT WITHIN REACH. PRN DILAUDID 0.5MG AND PRN ZOFRAN 4MG GIVEN, WILL CONTINUE TO MONITOR FOR EFFECTIVENESS. PERIPHERAL LINE INTACT AND PATENT. ENCOURAGED USE OF CALL LIGHT FOR ASSISTANCE AND VERBALIZED GOOD UNDERSTANDING. ROOM FREE OF CLUTTER AND BELONGINGS KEPT NEAR BEDSIDE. BED IN LOW LOCK SETTING. WILL CONTINUE TO MONITOR.
[2019-01-16] MEDS: ATORVASTATIN 10 MG TABLET PO SCH (21:48)
[2019-01-17] MEDS: HYDROMORPHONE 1 MG/1 ML DISP.SYRIN IV PRN ×3 (04:15→12:41)
[2019-01-17] MEDS: ONDANSETRON HCL/PF 4 MG/2 ML VIAL IVP PRN (04:16)
--- NOTE | 2019-01-17 07:00 | NUR ---
MS RN NOTES PATIENT ASLEEP IN BED WITH NO DISTRESS NOTED. CALL LIGHT WITHIN REACH. ALL DUE MEDS GIVEN ORDERED WITH NO ASE NOTED. PERIPHERAL LINE INTACT AND PATENT. NO FURTHER C/O PAIN OR DISCOMFORT. BED IN LOW LOCK SETTING. ROOM FREE OF CLUTTER AND BELONGINGS KEPT NEAR BEDSIDE. WILL CONTINUE TO MONITOR.
--- NOTE | 2019-01-17 07:10 | NUR ---
M/S RN NOTES PATIENT AWAKE, LYING IN BED, NO RESPIRATORY DISTRESS, NO C/O PAIN AT THIS TIME. PATIENT'S IV ON THE LT HAND #20G, INTACT AND PATENT WITH NS RUNNING AT 100ML/HR. PATIENT'S NEEDS ATTENDED. BED ON LOWEST LOCKED POSITION, CALL LIGHT WITHIN REACH. WILL CONTINUE TO MONITOR.
[2019-01-17 08:00] VITALS: BP 108/59
[2019-01-17] MEDS: MULTIVITAMINS,THERAGRAN 1 UDTAB TABLET PO SCH (08:40)
[2019-01-17] MEDS: FLUTICASONE/VILANTEROL 1 EACH BLST.W.DEV IH SCH (08:40)
[2019-01-17] MEDS: PANTOPRAZOLE 40 MG TABLET.DR PO SCH (08:40)
[2019-01-17] MEDS: METFORMIN 500 MG TABLET PO SCH (08:40)
[2019-01-17] MEDS: METOPROLOL TARTRATE 50 MG TABLET PO SCH (08:41)
[2019-01-17] MEDS: GABAPENTIN 100 MG CAPSULE PO SCH ×2 (08:41→12:10)
[2019-01-17] MEDS: APIXABAN 5 MG TABLET PO SCH (08:44)
[2019-01-17 08:52] VITALS: BP 108/59
[2019-01-17] MEDS: AMLODIPINE BESYLATE 10 MG TABLET PO SCH (08:52)
--- NOTE | 2019-01-17 14:08 | NUR ---
M/S RN NOTES PATIENT DISCHARGED TODAY IN STABLE CONDITION, VSS, PATIENT IN NO ACUTE DISTRESS. PATIENT GIVEN DISCHARGED INSTRUCTIONS, VERBALIZED UNDERSTANDING. SKIN ASSESS WITH NO SKIN BREAKDOWN. IV REMOVED AND APPLIED PRESSURE DRESSING. PATIENT'S BELONGINGS ACCOUNTED FOR AND SIGNED. PATIENT LEFT WITH GIRLFRIEND IN PRIVATE CAR.
== END 2019-01-17 14:00 | disposition home or self-care (01) | DRG 439 ==
LOC: ER 14:31 → TELE 20:06 → MED 23:16
PROVIDERS: ADMIT Family Medicine; ATTEND Nurse Practitioner Acute Care
DX: K85.90 Acute pancreatitis without necrosis or infection, unspecified (principal); Z68.41 Body mass index [BMI] 40.0-44.9, adult; E11.65 Type 2 diabetes mellitus with hyperglycemia; E87.6 Hypokalemia; E78.5 Hyperlipidemia, unspecified; I10 Essential (primary) hypertension; Z86.711 Personal history of pulmonary embolism; Z79.84 Long term (current) use of oral hypoglycemic drugs; G47.30 Sleep apnea, unspecified; K76.0 Fatty (change of) liver, not elsewhere classified; Z79.01 Long term (current) use of anticoagulants; Z79.51 Long term (current) use of inhaled steroids; E66.01 Morbid (severe) obesity due to excess calories
CPT/HCPCS: 36415; 71045-TC; 74181-TC; 76705-TC; 78226; 80048-TC; 80053-TC; 80061-TC; 80076-TC; 83690-TC; 83735-TC; 83880; 84100-TC; 84484-TC; 85025-TC; 85378-TC; 87081-TC; A9537; G0378; J1170; J2270; J2405; J7030; J7050; Q9967

== ENCOUNTER 2019-05-17 22:25 | Inpatient (IN) | payer MEDICAID, OTHER ==
[~2019-05-17] VITALS: Ht 175.3 cm; Wt 133.8 kg
--- NOTE | 2019-05-17 22:30 | NUR ---
BIBS W/ .MID STERNAL CP X 1 HR NON RADIATING. +SOB, FEELS GOT PUNCHED ON CHEST. O2 AT 96%. PT AAOX4, IV LINE ESTABLISHED, BLOOD DRAWN AND SENT TO LAB, CONNECTED TO THE CELL TESTER AND CONTINOUS POX. WILL CONTINUE TO MONITOR.
--- NOTE | 2019-05-17 22:31 | NUR ---
EKG AT BEDSIDE
[2019-05-17 22:47] LABS: BASOPHILS # (AUTO) 0.1 /CMM (0.0-0.2); BASOPHILS % (AUTO) 1.3 % (0.0-2.0); EOSINOPHILS % (AUTO) 2.8 % (0.0-6.0); HEMATOCRIT 50 % (39-51); LYMPHOCYTES # (AUTO) 2.7 /CMM (0.8-4.8); LYMPHOCYTES % (AUTO) 27.5 % (20.0-44.0); MEAN CORPUSCULAR HGB CONC 34 g/dl (31.0-36.0); MEAN CORPUSCULAR VOLUME 90 fL (80-96); MONOCYTES % (AUTO) 9.7 % (2.0-12.0); NEUTROPHILS # (AUTO) 5.8 /CMM (1.8-8.9); NEUTROPHILS % (AUTO) 58.7 % (43.0-81.0); PLATELET COUNT (AUTO) 312 /CMM (150-450); RED BLOOD CELL COUNT(AUTO) 5.52 MIL/uL (4.5-6.0); WHITE BLOOD COUNT (AUTO) 9.9 K/uL (4.3-11.0)
[2019-05-17] MEDS ORDERED: IOHEXOL-350 100 ML VIAL IV ONE (22:47)
[2019-05-17] MEDS ORDERED: ASPIRIN 81 MG TAB.CHEW ONE (22:48)
[2019-05-17 22:56] LABS: CALCIUM, SERUM 8.9 mg/dL (8.5-10.1); CARBON DIOXIDE 28 mmol/L (21-32); CHLORIDE 102 mmol/L (98-107); CREATININE 1.2 mg/dL (0.6-1.3); GLUCOSE 177 mg/dL (74-106); POTASSIUM 3.3 mmol/L (3.5-5.1); SODIUM SERUM 141 mmol/L (136-145); UREA NITROGEN, BLOOD 16 mg/dL (7-18)
[2019-05-17] MEDS ORDERED: ASPIRIN 81 MG TAB.CHEW PO ONE (23:00)
[2019-05-17] MEDS ORDERED: MORPHINE SULFATE INJ 4 MG/ML DISP.SYRIN ONE (23:12)
--- NOTE | 2019-05-17 23:18 | NUR ---
PT TAKEN TO CT
--- NOTE | 2019-05-17 23:24 | NUR ---
PT BACK FROM CT
[2019-05-17] MEDS ORDERED: MORPHINE SULFATE INJ 2 MG/ML DISP.SYRIN IV ONE (23:30)
[2019-05-17] MEDS ORDERED: NITROGLYCERIN 0.4 MG/TAB BOTTLE ONE (23:47)
--- NOTE | 2019-05-17 23:58 | NUR ---
NITROGLYCERIN PUT ON HOLD PER BP 101/78
[2019-05-18] MEDS ORDERED: IV NS 0.9% 1,000 ML IV PRN
[2019-05-18] MEDS ORDERED: FENTANYL PF 100MCG/2ML AMPUL IV ONE
[2019-05-18] MEDS ORDERED: NITROGLYCERIN 0.4 MG/TAB BOTTLE SL ONE
--- NOTE | 2019-05-18 00:01 | NUR ---
PT ON O2 2 LITERS. RA 92%.
[2019-05-18] MEDS ORDERED: FENTANYL PF 100MCG/2ML AMPUL ONE (00:03)
[2019-05-18] MEDS ORDERED: ONDANSETRON HCL/PF 4 MG/2 ML VIAL ONE (00:14)
[2019-05-18] MEDS ORDERED: ONDANSETRON HCL/PF 4 MG/2 ML VIAL IV ONE (00:30)
--- NOTE | 2019-05-18 01:07 | NUR ---
BED ASSIGNMENT 323-2
--- NOTE | 2019-05-18 01:15 | NUR ---
REPORT GIVEN TO MONTSERRAT ALFARO.
[2019-05-18 01:21] VITALS: BP 112/80
--- NOTE | 2019-05-18 01:29 | NUR ---
PT TRANSFERRED IN STABLE CONDITION.
[2019-05-18] MEDS ORDERED: TEMAZEPAM 15 MG CAPSULE PO PRN (01:30)
[2019-05-18] MEDS ORDERED: NITROGLYCERIN 0.4 MG/TAB BOTTLE SL PRN (01:30)
[2019-05-18] MEDS ORDERED: INSULIN REGULAR, HUMAN 100 UNIT/ML 3 ML VIAL SQ PRN (01:30)
[2019-05-18] MEDS ORDERED: MAGNESIUM HYDROXIDE 30 ML UDC PO PRN (01:30)
[2019-05-18] MEDS ORDERED: ACETAMINOPHEN 325 MG TABLET PO PRN (01:30)
[2019-05-18] MEDS ORDERED: MAG HYDROX/AL HYDROX/SIMETH 30 ML UDC PO PRN (01:30)
[2019-05-18] MEDS ORDERED: ONDANSETRON HCL/PF 4 MG/2 ML VIAL IVP PRN (01:30)
[2019-05-18] MEDS ORDERED: DEXTROSE 50%-WATER 50 ML DISP.SYRIN IV PRN (01:30)
[2019-05-18] MEDS ORDERED: ALBUTEROL FS 2.5 MG/0.5 ML VIAL.NEB NEB PRN (01:30)
[2019-05-18] MEDS: HYDROCODONE/APAP 5/325MG 1 EACH TABLET PO PRN (01:44)
--- NOTE | 2019-05-18 02:02 | NUR ---
MS/RN RECEIVED PATIENT FROM [facility], PATIENT WAS AWAKE, ALERT, ORIENTED, WITH C/O CP 8/10, NON RADIATING, MEDICATED WITH NORCO 1 TAB PO ORDERED. ADMISSION DONE PER PROTOCOL, PLAN OF CARE DISCUSSED WITH THE PATIENT, VERBALIZED UNDERSTANDING AND AGREEMENT, TAUGHT THE USE OF CALL LIGHT AND PLACED IT AT BEDSIDE, WILL MONITOR.
--- NOTE | 2019-05-18 03:06 | NUR ---
MS/RN PATIENT IS SLEEPING AT THIS TIME, APPEAR COMFORTABLE, NO SIGNS OF DISTRESS NOTED, CALL LIGHT IN REACH. WILL CONTINUE TO MONITOR.
[2019-05-18 04:00] VITALS: BP 132/82
[2019-05-18] MEDS: MORPHINE SULFATE INJ 2 MG/ML DISP.SYRIN IV PRN ×5 (04:13→21:55)
--- NOTE | 2019-05-18 06:05 | NUR ---
MS/RN PATIENT IS SLEEPING, EASILY AROUSABLE, APPEAR COMFORTABLE, NO SIGNS OF DISTRESS NOTED, ALL NEEDS ATTENDED AT THIS TIME, WILL CONTINUE TO MONITOR.
[2019-05-18] MEDS: BLOOD SUGAR DIAGNOSTIC 1 EACH STRIP IN SCH ×4 (07:18→21:39)
[2019-05-18 08:00] VITALS: BP 131/85
[2019-05-18] MEDS: PANTOPRAZOLE 40 MG TABLET.DR PO SCH (08:24)
[2019-05-18] MEDS: FLUTICASONE/VILANTEROL 1 EACH BLST.W.DEV IH SCH (08:32)
[2019-05-18] MEDS: METOPROLOL TARTRATE 25 MG TABLET PO SCH ×2 (08:33→17:34)
[2019-05-18] MEDS: APIXABAN 5 MG TABLET PO SCH ×2 (09:06→21:38)
[2019-05-18] MEDS: POTASSIUM CHLORIDE 20 MEQ TAB.PRT.SR PO SCH ×2 (09:09→10:17)
[2019-05-18 16:00] VITALS: BP 130/81
--- NOTE | 2019-05-18 19:00 | NUR ---
MS RN NOTES PATIENT RESTING COMFORTABLY IN BED. ALERT AND ORIENTED X4. HOB ELEVATED. NO S/S OF RESPIRATORY DISTRESS. ON O2 2L/MIN VIA NC. AMBULATORY WITH STEADY GAIT. DENIES ANY C/O PAIN NOR DISCOMFORT AT THIS TIME. DENIES ANY C/O LEE, CHEST PAIN. RIGHT AC #20 IV ACCESS INTACT AND PATENT. BED IN LOWEST POSITION, LOCKED. CALL LIGHT WITHIN REACH. ABLE TO VERBALIZE NEEDS. IN NO APPARENT DISTRESS.
[2019-05-18 20:00] VITALS: BP 133/91
--- NOTE | 2019-05-18 22:00 | NUR ---
MS RN NOTES BS CHECKED 171. PT REFUSED TO HAVE INSULIN COVERAGE AT THIS TIME. EXPLAINED TO PT IMPORTANCE OF INSULIN COVERAGE IN HIS POC BUT PT STILL REFUSED. WILL CONTINUE TO MONITOR.
[2019-05-19] MEDS: MORPHINE SULFATE INJ 2 MG/ML DISP.SYRIN IV PRN ×2 (02:00→05:58)
--- NOTE | 2019-05-19 06:00 | NUR ---
MS RN NOTES BS CHECKED 145. PT REFUSED TO HAVE INSULIN COVERAGE AT THIS TIME. EXPLAINED TO PT IMPORTANCE OF INSULIN COVERAGE IN HIS POC BUT PT STILL REFUSED. WILL CONTINUE TO MONITOR.
--- NOTE | 2019-05-19 06:34 | NUR ---
MS RN NOTES AWAKE & RESPONSIVE. NOT IN ANY DISTRESS. NO SOB NOTED. DENIES AY PAIN OR DISCOMFORT AT THIS TIME. WITH IV-HL PATENT & INTACT. MONITORED ACCORDINGLY. CALL LIGHT WITHIN REACH. BED IN LOWEST POSITION. SR UP X 2 FOR SAFETY. WILL ENDORSE TO NEXT SHIFT.
[2019-05-19] MEDS: BLOOD SUGAR DIAGNOSTIC 1 EACH STRIP IN SCH (06:48)
--- NOTE | 2019-05-19 06:55 | NUR ---
DIAGNOSTIC IMAGING MANAGER OPENING NOTES PATIENT RESTING COMFORTABLY IN BED WITH SAFETY PRECAUTIONS IN PLACE; BED LOCKED IN LOWEST POSITION, SIDE RAILS X2; CALL LIGHT WITHIN EASY REACH. BREATHING EVEN AND UNLABORED; NO S/S OF ACUTE DISTRESS NOTED. RAC #20 INTACT AND PATENT, FLUSHING WELL; NO S/S OF REDNESS OR INFILTRATION. TELE MONITOR READS SR /ST WITH ACUTE PVCS HR 90-100S. WILL CONTINUE TO MONITOR.
--- NOTE | 2019-05-19 07:10 | NUR ---
MS RN OPENING NOTES RECEIVED PATIENT IN BED, ALERT AND AWAKE WATCHING TV. HOB ELEVATED. NO SOB. ON 02 2L/MIN VIA NC JAYLEN WELL. DENIES ANY C/O PAIN NOR DISCOMFORT AT THIS TIME. RAC #20 SL INTACT AND PATENT. SLEPT WELL THROUGHOUT THE NIGHT PER PATIENT. DENIES ANY C/O CHEST PAIN NOR LEE. BED IN LOWEST POSITION, LOCKED. CALL LIGHT WITHIN REACH.
[2019-05-19 07:14] LABS: BASOPHILS % (AUTO) 0.6 % (0.0-2.0); EOSINOPHILS % (AUTO) 4.8 % (0.0-6.0); HEMATOCRIT 44 % (39-51); HEMOGLOBIN 14.8 g/dL (13.5-17.5); LYMPHOCYTES # (AUTO) 1.3 /CMM (0.8-4.8); LYMPHOCYTES % (AUTO) 24.3 % (20.0-44.0); MEAN CORPUSCULAR HGB CONC 34 g/dl (31.0-36.0); MEAN CORPUSCULAR VOLUME 92 fL (80-96); MONOCYTES # (AUTO) 0.7 /CMM (0.1-1.30); MONOCYTES % (AUTO) 13.2 % (2.0-12.0); NEUTROPHILS # (AUTO) 3.1 /CMM (1.8-8.9); NEUTROPHILS % (AUTO) 57.1 % (43.0-81.0); PLATELET COUNT (AUTO) 239 /CMM (150-450); RED BLOOD CELL COUNT(AUTO) 4.81 MIL/uL (4.5-6.0); WHITE BLOOD COUNT (AUTO) 5.4 K/uL (4.3-11.0)
[2019-05-19 07:25] LABS: CALCIUM, SERUM 8.2 mg/dL (8.5-10.1); CREATININE 0.8 mg/dL (0.6-1.3); MAGNESIUM 2.1 mg/dL (1.8-2.4); PHOSPHORUS 3.1 mg/dL (2.5-4.9); POTASSIUM 3.9 mmol/L (3.5-5.1)
[2019-05-19 08:00] VITALS: BP 146/88
[2019-05-19] MEDS: PANTOPRAZOLE 40 MG TABLET.DR PO SCH (08:10)
[2019-05-19] MEDS: FLUTICASONE/VILANTEROL 1 EACH BLST.W.DEV IH SCH (08:11)
[2019-05-19] MEDS: APIXABAN 5 MG TABLET PO SCH (08:12)
[2019-05-19 08:16] VITALS: BP 146/88
[2019-05-19] MEDS: METOPROLOL TARTRATE 25 MG TABLET PO SCH (08:16)
[2019-05-19] MEDS: HYDROCODONE/APAP 5/325MG 1 EACH TABLET PO PRN (09:26)
--- NOTE | 2019-05-19 11:00 | NUR ---
MS RN CLOSING/DISCHARGE NOTES ALERT AND AWAKE ORIENTED X4. NO S/S OF RESPIRATORY DISTRESS. ON ROOM AIR WITH SPO2 99%. DENIES ANY C/O CHEST PAIN, HEADACHE, N/V. PER PATIENT, " I FEEL MUCH BETTER NOW." AMBULATORY WITH STEADY GAIT. DISCHARGE INSTRUCTIONS AND PACKET GIVEN TO PATIENT AND EDUCATION PROVIDED. IV ACCESS TO RAC CATHETER REMOVED WITH TIP IN PLACE WITH GAUZE DRESSING APPLIED. ALL BELONGINGS ACCOUNTED FOR. PATIENT PICKED UP BY GF AND LEFT IN STABLE CONDITION.
[2019-08-05] MEDS ORDERED: HYDR-4354 PO (08:13)
== END 2019-05-19 11:00 | disposition home or self-care (01) | DRG 145 ==
LOC: ER 22:27 → TELE 05-18 01:12 → MED 05-18 09:44
PROVIDERS: ADMIT Family Medicine; ATTEND Family Medicine
DX: R07.81 Pleurodynia (principal); D68.59 Other primary thrombophilia; E66.01 Morbid (severe) obesity due to excess calories; E11.65 Type 2 diabetes mellitus with hyperglycemia; Z68.41 Body mass index [BMI] 40.0-44.9, adult; E87.6 Hypokalemia; I10 Essential (primary) hypertension; E78.5 Hyperlipidemia, unspecified; Z86.711 Personal history of pulmonary embolism; Z79.01 Long term (current) use of anticoagulants; F41.9 Anxiety disorder, unspecified; R91.8 Other nonspecific abnormal finding of lung field; E78.00 Pure hypercholesterolemia, unspecified
CPT/HCPCS: 36415; 71045-TC; 80048-TC; 80061-TC; 82962-TC; 83735-TC; 84100-TC; 84484-TC; 85025-TC; 87081-TC; 93307-TC; G0378; J1815; J2270; J2405; J3010; J7030; Q9967

== ENCOUNTER 2019-06-26 03:32 | Emergency (ER) | payer OTHER ==
[~2019-06-26] VITALS: Ht 175.3 cm; Wt 122.5 kg
[~2019-06-26 03:32] MED LIST changes: -FLUT1BLS IH; -IBUP-1955 PO; -PANT40TA2 PO
[2019-06-26] MEDS ORDERED: MORPHINE SULFATE INJ 2 MG/ML DISP.SYRIN IV ONE ×2 (04:00→05:30)
[2019-06-26] MEDS ORDERED: MORPHINE SULFATE INJ 4 MG/ML DISP.SYRIN ONE ×2 (04:17→05:31)
[2019-06-26 04:20] LABS: BASOPHILS # (AUTO) 0.1 /CMM (0.0-0.2); BASOPHILS % (AUTO) 1.8 % (0.0-2.0); EOSINOPHILS % (AUTO) 4.1 % (0.0-6.0); HEMATOCRIT 44 % (39-51); HEMOGLOBIN 15.1 g/dL (13.5-17.5); LYMPHOCYTES # (AUTO) 2.4 /CMM (0.8-4.8); LYMPHOCYTES % (AUTO) 31.1 % (20.0-44.0); MEAN CORPUSCULAR HGB CONC 34 g/dl (31.0-36.0); MEAN CORPUSCULAR VOLUME 92 fL (80-96); MONOCYTES # (AUTO) 0.7 /CMM (0.1-1.30); MONOCYTES % (AUTO) 9.5 % (2.0-12.0); NEUTROPHILS # (AUTO) 4.2 /CMM (1.8-8.9); NEUTROPHILS % (AUTO) 53.5 % (43.0-81.0); PLATELET COUNT (AUTO) 261 /CMM (150-450); RED BLOOD CELL COUNT(AUTO) 4.77 MIL/uL (4.5-6.0); WHITE BLOOD COUNT (AUTO) 7.9 K/uL (4.3-11.0)
[2019-06-26 04:30] LABS: CALCIUM, SERUM 8.4 mg/dL (8.5-10.1); CARBON DIOXIDE 30 mmol/L (21-32); CHLORIDE 105 mmol/L (98-107); CREATININE 1.2 mg/dL (0.6-1.3); GLUCOSE 252 mg/dL (74-106); POTASSIUM 3.8 mmol/L (3.5-5.1); SODIUM SERUM 142 mmol/L (136-145); UREA NITROGEN, BLOOD 19 mg/dL (7-18)
--- NOTE | 2019-06-26 04:31 | NUR ---
BIBWIFE FROM HOME TO ER BED 3. AAOX4. SOB - RAPID BREATHING. AMBULATORY. C/O MID STERNAL CP RADIATING TO THE BACK FEELING OF TIGHTNESS 10/10 X 2 DAYS. NO AGGREVATING FACTORS. PT IS ALSO C/O ASSOCIATED SOB. PT STATES THAT HE HAD 3 PULMONARY EMBOLISM. PT IS ALSO C/O LEG CRAMPING AND SWELLING BUT NO EDEMA NOTED UPON ASSESSMENT. MD WAS AT BEDSIDE FOR EVAL. ORDERS RECIVED, NOTED AND CARRIED OUT. IV LINE OBTAINED ON THE L FA 20G. BLOO DRAWN AND SGIVEN TO WELLNESS NURSE RN AT BEDSIDE. PT IS PLACED ON MONITOR. AND 02 VIA NC @ 2LPM. WILL CONTINUE TO MONITOR
[2019-06-26] MEDS ORDERED: IOHEXOL-350 100 ML VIAL IV ONE (04:35)
[2019-06-26] MEDS ORDERED: CT SWABBABLE VALVE TRANS SET 1 EA INFUS.SET MC ONE (04:36)
[2019-06-26] MEDS ORDERED: IV NS 0.9% 250 ML IV ONE (04:36)
--- NOTE | 2019-06-26 04:49 | NUR ---
PT IN CT ON ABRIL
[2019-06-26] MEDS ORDERED: MORPHINE SULFATE INJ 2 MG/ML DISP.SYRIN ONE (05:31)
[2019-06-26] MEDS ORDERED: ONDANSETRON HCL/PF 4 MG/2 ML VIAL ONE (05:38)
--- NOTE | 2019-06-26 05:38 | NUR ---
PT BECAME NAUSEOUS WHILE ADMINISTERING MORPHINE IV. PER VERBAL MD ORDER, WILL ADMINISTER ZOFRAN 4MG IV X1 NOW
--- NOTE | 2019-06-26 06:11 | NUR ---
Patient discharged to home in stable condition. Written and verbal after care instructions given. Patient verbalizes understanding of instruction.IV removed. Catheter intact and site benign. Pressure and 4x4 applied to site. No bleeding noted. Pt ambulatory with a steady gait
[2019-06-26 06:13] VITALS: BP 145/80
[2019-06-29] MEDS ORDERED: ONDANSETRON HCL/PF 4 MG/2 ML VIAL IV ONE (08:00)
== END 2019-06-26 06:13 | disposition home or self-care (01) ==
LOC: ER 03:34
DX: R07.89 Other chest pain (principal); E78.5 Hyperlipidemia, unspecified; I10 Essential (primary) hypertension; D68.59 Other primary thrombophilia; Z90.49 Acquired absence of other specified parts of digestive tract; Z79.899 Other long term (current) drug therapy; Z86.711 Personal history of pulmonary embolism
CPT/HCPCS: 36415; 71045; 71275; 80048; 84484; 85025; 93005 ×2; 93970; 96374; 96376; 99284; J2270 ×3; J2405; J7030; J7050; Q9967

== ENCOUNTER 2019-08-02 19:06 | Inpatient (IN) | payer OTHER ==
[~2019-08-02] VITALS: Ht 175.3 cm; Wt 132.4 kg
--- NOTE | 2019-08-02 19:24 | NUR ---
PT AAOX4. AMBULATORY WITH STEADY GAIT. BIBSELF C/O RUQ PAIN, SHARP 10/10 S/P COUGHING AND HEARD A "POP" X1HR. PER PT, PAIN BECOMES WORSE ONCE PT COUGHS OR PLACED PRESSURE ON ABD. PT PLACED IN GOWN, ON MONITOR, AND PULSE OX. NO PAIN NOTED ONCE PT LAYING IN BED. PAIN COMES BACK WHEN PT MOVES. PT ALSO C/O SOB DUE TO THE PAIN. PT SAT 99% ON ROOM AIR. AWAITING MD FOR EVAL. SHELIA SHRESTHA TO MONITOR PT.
[2019-08-02] MEDS ORDERED: ONDANSETRON HCL/PF 4 MG/2 ML VIAL ONE (19:27)
[2019-08-02] MEDS ORDERED: HYDROMORPHONE 1 MG/1 ML DISP.SYRIN ONE ×3 (19:28→22:33)
[2019-08-02] MEDS ORDERED: ONDANSETRON HCL/PF 4 MG/2 ML VIAL IVP ONE (19:30)
[2019-08-02] MEDS ORDERED: IV NS 0.9% 1,000 ML BAG IV ONE (19:30)
[2019-08-02] MEDS ORDERED: HYDROMORPHONE INJ 2 MG/ML DISP.SYRIN IV ONE (19:30)
[2019-08-02 19:42] LABS: BASOPHILS # (AUTO) 0.3 /CMM (0.0-0.2); BASOPHILS % (AUTO) 3.6 % (0.0-2.0); EOSINOPHILS % (AUTO) 2.9 % (0.0-6.0); HEMATOCRIT 50 % (39-51); LYMPHOCYTES # (AUTO) 1.8 /CMM (0.8-4.8); LYMPHOCYTES % (AUTO) 25.5 % (20.0-44.0); MEAN CORPUSCULAR HGB CONC 34 g/dl (31.0-36.0); MEAN CORPUSCULAR VOLUME 93 fL (80-96); MONOCYTES # (AUTO) 0.8 /CMM (0.1-1.30); MONOCYTES % (AUTO) 10.9 % (2.0-12.0); NEUTROPHILS # (AUTO) 4.1 /CMM (1.8-8.9); NEUTROPHILS % (AUTO) 57.1 % (43.0-81.0); PLATELET COUNT (AUTO) 270 /CMM (150-450); RED BLOOD CELL COUNT(AUTO) 5.39 MIL/uL (4.5-6.0); WHITE BLOOD COUNT (AUTO) 7.2 K/uL (4.3-11.0)
--- NOTE | 2019-08-02 19:43 | NUR ---
ACTIVITY MANAGER AT BEDSIDE FOR LABS.
--- NOTE | 2019-08-02 19:44 | NUR ---
FLUIDS INITIATED. MEDS GIVEN. EMT AT BEDSIDE FOR EKG.
[2019-08-02 19:53] LABS: ALBUMIN 3.7 g/dL (3.4-5.0); BILIRUBIN,DIRECT 0.1 mg/dL (0.0-0.2); BILIRUBIN,TOTAL 0.6 mg/dL (0.2-1.0); CALCIUM, SERUM 9.2 mg/dL (8.5-10.1); POTASSIUM 3.6 mmol/L (3.5-5.1); TOTAL PROTEIN, SERUM 7.6 g/dL (6.4-8.2)
[2019-08-02] MEDS ORDERED: HYDROMORPHONE INJ 0.5 MG/0.5 ML SYRINGE IV ONE ×2 (20:30→22:30)
[2019-08-02] MEDS ORDERED: IOHEXOL-300 100 ML VIAL IV ONE (21:51)
[2019-08-02] MEDS ORDERED: IV NS 0.9% 250 ML IV ONE (21:51)
[2019-08-02] MEDS ORDERED: CT SWABBABLE VALVE TRANS SET 1 EA INFUS.SET MC ONE (21:51)
--- NOTE | 2019-08-02 22:01 | NUR ---
BROUGHT TO CT
--- NOTE | 2019-08-02 22:35 | NUR ---
Patient is resting comfortably in bed. Easily aroused. Pain med given.
[2019-08-02] MEDS ORDERED: METOPROLOL TARTRATE 50 MG TABLET ONE (23:06)
[2019-08-02] MEDS ORDERED: METOPROLOL TARTRATE 25 MG TABLET PO ONE (23:30)
--- NOTE | 2019-08-02 23:54 | NUR ---
rm 321-2
[2019-08-03] MEDS ORDERED: ONDANSETRON HCL/PF 4 MG/2 ML VIAL IVP PRN
[2019-08-03] MEDS ORDERED: MAGNESIUM HYDROXIDE 30 ML UDC PO PRN
[2019-08-03] MEDS ORDERED: Z GUARD REMEDY 2 OZ OINT TP PRN
[2019-08-03] MEDS ORDERED: MAG HYDROX/AL HYDROX/SIMETH 30 ML UDC PO PRN
[2019-08-03] MEDS ORDERED: ACETAMINOPHEN 325 MG TABLET PO PRN
--- NOTE | 2019-08-03 00:02 | NUR ---
REPORT GIVEN TO GALLITO MARIANO
--- NOTE | 2019-08-03 00:20 | NUR ---
MS SUPERVISOR ASSEMBLY ROOM NOTES Received patient from ER via gurney accompanied by 1 ER staff. Admitted to MS 321-2 due to RUQ pain. Assisted patient to bed comfortably. Noted ambulatory with steady gait. With complaints of RUQ pain 02/24. Patient's belongings inventory completed by the assigned GAMING CASHIER. Admitting orders noted and carried out. Instructed patient to report to healthcare provider any new unusualies especially SOB or chest pain or worsening pain. Patient verbalized understanding. Kept on bed clean, dry and comfortable. Call light within easy reach. Will continue to monitor accordingly.
[2019-08-03] MEDS: MORPHINE SULFATE INJ 2 MG/ML DISP.SYRIN IV PRN ×6 (00:34→22:05)
[2019-08-03 06:20] LABS: BASOPHILS # (AUTO) 0.1 /CMM (0.0-0.2); BASOPHILS % (AUTO) 1.2 % (0.0-2.0); EOSINOPHILS % (AUTO) 3.3 % (0.0-6.0); HEMATOCRIT 44 % (39-51); HEMOGLOBIN 15.2 g/dL (13.5-17.5); LYMPHOCYTES # (AUTO) 1.5 /CMM (0.8-4.8); MEAN CORPUSCULAR HGB CONC 35 g/dl (31.0-36.0); MEAN CORPUSCULAR VOLUME 92 fL (80-96); MONOCYTES # (AUTO) 0.8 /CMM (0.1-1.30); MONOCYTES % (AUTO) 12.6 % (2.0-12.0); NEUTROPHILS # (AUTO) 3.7 /CMM (1.8-8.9); NEUTROPHILS % (AUTO) 58.9 % (43.0-81.0); PLATELET COUNT (AUTO) 242 /CMM (150-450); RED BLOOD CELL COUNT(AUTO) 4.79 MIL/uL (4.5-6.0); WHITE BLOOD COUNT (AUTO) 6.3 K/uL (4.3-11.0)
[2019-08-03 06:52] LABS: THYROID STIMULATING HORMONE 2.439 uIU/mL (0.358-3.74)
--- NOTE | 2019-08-03 06:53 | NUR ---
MS RN CLOSING NOTES Patient awake on bed on RA, with complaints of pain. yardage caller MD made aware, no new orders noted. All nursing needs attended. Kept on bed clean, dry and comfortable. Call light within easy reach. Endorsed.
[2019-08-03 07:29] LABS: CREATININE 0.9 mg/dL (0.6-1.3); PHOSPHORUS 3.9 mg/dL (2.5-4.9); POTASSIUM 3.6 mmol/L (3.5-5.1)
[2019-08-03 08:00] VITALS: BP 154/95
--- NOTE | 2019-08-03 08:00 | NUR ---
MS RN OPENING NOTES RECEIVED PT IN BED. AWAKER, ALERT AND ORIENTED X 4. NO CARDIAC OR RESP DISTRESS NOTED. NO SOB MNOTED. SATURATING WELL ON ROOM AIR. PT IS AMBULATORY WITH STEADY GAIT. IV ACCESS NOTED ON L HAND G20. IV ACCESS INTACT AND PATENT. NO S/S OF INFECTION OR INFILTRATION NOTED. SAFETY PRECAUTIONS IN PLACE. BED LOCKED AND IN LOW POSITION. SIDE RAILS UP. WILL CONTINUE TO MONITOR.
[2019-08-03] MEDS: PANTOPRAZOLE 40 MG TABLET.DR PO SCH (08:54)
[2019-08-03] MEDS ORDERED: METFORMIN 500 MG TABLET PO SCH (09:00)
[2019-08-03] MEDS ORDERED: APIXABAN 5 MG TABLET PO SCH (09:00)
--- NOTE | 2019-08-03 09:30 | NUR ---
POSTERIOR HEAD DERMATITIS NOTIFIED MD DR. DANIELS REGARDING POSTERIOR HEAD DERMATITIS. PER PT SHE GOT FROM A LONG TIME AGO WHEN HE GOT 'NICKED AT THE [facility] FURING A HAIRCUT". PER DR. DANIELS, NOTHING NEEDS TO BE DONE RIGHT NOW, AND THAT IT HAPPENS. IT WILL HEAL ITSELF. PER , NO NEED FOR ATB.
--- NOTE | 2019-08-03 09:36 | NUR ---
WOUND CARE CONSULT: PT PRESENTS WITH REDNESS TO POSTERIOR SCALP, PRESENT ON ADMISSION. PT STATES WAS NICKED AT HIS [facility]. RN TO DISCUSS WITH PMD TODAY. WILL SEE PRN. PT IS AMBULATORY AND CONTINENT. Addendum: 08/03/19 at 0938 by RAMONA QUAN WNDNU Amended: Links added.
[2019-08-03] MEDS: AMLODIPINE BESYLATE 10 MG TABLET PO SCH (09:42)
[2019-08-03] MEDS: METOPROLOL TARTRATE 50 MG TABLET PO SCH ×2 (09:42→21:20)
[2019-08-03] MEDS: GABAPENTIN 100 MG CAPSULE PO SCH ×3 (09:42→17:06)
[2019-08-03] MEDS: MULTIVITAMINS,THERAGRAN 1 UDTAB TABLET PO SCH (09:42)
[2019-08-03] MEDS: APIXABAN 5 MG TABLET PO SCH ×2 (09:44→17:07)
--- NOTE | 2019-08-03 09:45 | NUR ---
IV FLUIDS PT WAS STARTED ON IV FLUIDS NS@75ML/HR PER DR. DANIELS ORDER. NOTED AND CARRIED OUT.
[2019-08-03] MEDS ORDERED: DEXTROSE 50%-WATER 50 ML DISP.SYRIN IV PRN (10:00)
[2019-08-03] MEDS: IV NS 0.9% 1,000 ML IV PRN ×2 (10:02→22:18)
[2019-08-03] MEDS: BLOOD SUGAR DIAGNOSTIC 1 EACH STRIP IN SCH ×3 (12:19→22:04)
[2019-08-03 16:00] VITALS: BP 134/89
--- NOTE | 2019-08-03 18:34 | NUR ---
MS RN CLOSING NOTES PT IN BED. AWAKE, ALERT AND ORIENTED X 4. PLEASANT AND COOPERATIVE. NO CARDIAC OR RESP DISTRESS NOTED. NO SOB NOTED. SATURATING WELL ON ROOM AIR. PT IS AMBULATORY WITH STEADY GAIT. IV ACCESS NOTED ON L HAND G20. WITH IV FLUIDS RUNNING NS@ 75ML/HR. TOLERATING IV FLUIDS WELL. IV ACCESS INTACT AND PATENT. NO S/S OF INFECTION OR INFILTRATION NOTED. SAFETY PRECAUTIONS IN PLACE. BED LOCKED AND IN LOW POSITION. SIDE RAILS UP. PTS PAIN WAS MANAGED THROUGHOUT THE SHIFT. PAIN MEDICATION PROVIDED NEEDED. WILL ENDORSE TO NEXT SHIFT.
--- NOTE | 2019-08-03 19:14 | NUR ---
DR. AYALA CALLED DR. AYALA CALLED DISCUSSED PTS CURRENT STATUS. AND WAS NOTIFIED OF PTS RECENT IMAGINGS AND LAB RESULTS.
--- NOTE | 2019-08-03 19:33 | NUR ---
MS RN OPENING NOTES PATIENT RECEIVED RESTING IN BED A/O X 4. STABLE ON RA WITH BREATHING EVEN AND UNLABORED, NO SOB NOTED. NO SIGNS OF ACUTE DISTRESS. NO COMPLAINTS OF PAIN OR DISCOMFORT AT THE MOMENT. IV LOCATED ON L HAND #20 RUNNING NS @ 75 ML/HR. SAFETY PRECAUTIONS IN PLACE WITH BED IN LOWEST POSITION, CALL LIGHT WITHIN REACH, BREAKS ON, AND SIDE RAILS UP X2. WILL CONTINUE TO MONITOR THROUGHOUT THE NIGHT.
[2019-08-03 20:00] VITALS: BP 157/94
[2019-08-03] MEDS: ATORVASTATIN 40 MG TABLET PO SCH (21:19)
[2019-08-04] MEDS: MORPHINE SULFATE INJ 2 MG/ML DISP.SYRIN IV PRN ×5 (02:06→20:08)
--- NOTE | 2019-08-04 06:29 | NUR ---
MS RN CLOSING NOTES PATIENT RESTING IN BED A/O X 4. STABLE ON RA WITH BREATHING EVEN AND UNLABORED, NO SOB NOTED. NO SIGNS OF ACUTE DISTRESS. NO COMPLAINTS OF PAIN OR DISCOMFORT AT THE MOMENT- PAIN MANAGED THROUGH OUT THE NIGHT. IV LOCATED ON L HAND #20 RUNNING NS @ 75 ML/HR. SAFETY PRECAUTIONS IN PLACE WITH BED IN LOWEST POSITION, CALL LIGHT WITHIN REACH, BREAKS ON, AND SIDE RAILS UP X2. ALL NEEDS ATTENDED TO THROUGHOUT THE NIGHT. WILL ENDORSE TO ONCOMING SHIFT ABOUT HEIDY.
[2019-08-04 06:49] LABS: CALCIUM, SERUM 8.2 mg/dL (8.5-10.1); CREATININE 0.9 mg/dL (0.6-1.3); POTASSIUM 3.9 mmol/L (3.5-5.1)
[2019-08-04] MEDS: BLOOD SUGAR DIAGNOSTIC 1 EACH STRIP IN SCH ×4 (07:30→21:42)
[2019-08-04] MEDS: PANTOPRAZOLE 40 MG TABLET.DR PO SCH (07:42)
[2019-08-04 08:00] VITALS: BP 145/77
--- NOTE | 2019-08-04 08:00 | NUR ---
MS RN OPENING NOTES RECEIVED PT IN BED. AWAKE, ALERT AND ORIENTED X 4. PLEASANT AND COOPERATIVE. NO CARDIAC OR RESP DISTRESS NOTED. NO COMPLAINTS OF PAIN OR DISCOMFORT. PT IS AMBULATORY WITH STEADY GAIT. IV ACCESS NOTED ON L HAND G20. IV FLUIDS RUNNING NS@ 75ML/HR. TOLERATING IV FLUIDS WELL. IV ACCESS INTACT AND PATENT. NO S/S OF INFECTION OR INFILTRATION NOTED. SAFETY PRECAUTIONS IN PLACE. BED LOCKED AND IN LOW POSITION. SIDE RAILS UP. WILL CONT TO MONITOR
[2019-08-04] MEDS: AMLODIPINE BESYLATE 10 MG TABLET PO SCH (08:31)
[2019-08-04] MEDS: GABAPENTIN 100 MG CAPSULE PO SCH ×3 (08:31→16:24)
[2019-08-04] MEDS: MULTIVITAMINS,THERAGRAN 1 UDTAB TABLET PO SCH (08:31)
[2019-08-04] MEDS: METOPROLOL TARTRATE 50 MG TABLET PO SCH ×2 (08:31→21:34)
[2019-08-04] MEDS: APIXABAN 5 MG TABLET PO SCH ×2 (08:33→16:26)
[2019-08-04] MEDS: INSULIN REGULAR, HUMAN 100 UNIT/ML 3 ML VIAL SQ PRN ×3 (11:57→21:42)
[2019-08-04 16:00] VITALS: BP 133/76
--- NOTE | 2019-08-04 18:19 | NUR ---
MS RN CLOSING NOTES PT IN BED. AWAKE, ALERT AND ORIENTED X 4. PLEASANT AND COOPERATIVE. NO CARDIAC OR RESP DISTRESS NOTED. NO SOB NOTED. AMBULATORY WITH STEADY GAIT. IV ACCESS NOTED ON L HAND G20. WITH IV FLUIDS RUNNING NS@ 75ML/HR. TOLERATING IV FLUIDS WELL. IV ACCESS INTACT AND PATENT. NO S/S OF INFECTION OR INFILTRATION NOTED. SAFETY PRECAUTIONS IN PLACE. BED LOCKED AND IN LOW POSITION. SIDE RAILS UP. PTS PAIN WAS MANAGED THROUGHOUT THE SHIFT. PAIN MEDICATION PROVIDED NEEDED. WILL ENDORSE TO NEXT SHIFT.
--- NOTE | 2019-08-04 19:10 | NUR ---
MS/RN OPENING NOTES: RECEIVED PATIENT IN BED, AWAKE AND VERBALLY RESPONSIVE. A/OX4. NO CARDIAC OR RESP DISTRESS NOTED. COMPLAINING OF MODERATE PAIN. PT IS AMBULATORY WITH STEADY GAIT. IV ACCESS NOTED ON L HAND G20. IV FLUIDS RUNNING NS@ 75ML/HR. TOLERATING IV FLUIDS WELL. IV ACCESS INTACT AND PATENT. NO S/S OF INFECTION OR INFILTRATION NOTED. SAFETY PRECAUTIONS IN PLACE. BED LOCKED AND IN LOW POSITION. SIDE RAILS UP X2. CALL LIGHT WITHIN REACH. WILL CONTINUE TO MONITOR ACCORDINGLY.
[2019-08-04 20:00] VITALS: BP 141/71
--- NOTE | 2019-08-04 20:08 | NUR ---
MS/RN NOTES: PATIENT COMPLAINED OF PAIN LEVEL OF 9 ON HIS RUQ. VS WNL, PT. STABLE. ADMINISTERED MORPHINE 2MG IV PUSH. WILL CONTINUE TO MONITOR.
[2019-08-04] MEDS: ATORVASTATIN 40 MG TABLET PO SCH (21:34)
[2019-08-05] MEDS: IV NS 0.9% 1,000 ML IV PRN (00:06)
[2019-08-05] MEDS: MORPHINE SULFATE INJ 2 MG/ML DISP.SYRIN IV PRN ×4 (00:08→12:56)
--- NOTE | 2019-08-05 00:08 | NUR ---
MS/RN NOTES: PATIENT COMPLAINED OF PAIN LEVEL OF 9 ON HIS RUQ. VS WNL, PT. STABLE. ADMINISTERED MORPHINE 2MG IV PUSH. WILL CONTINUE TO MONITOR.
--- NOTE | 2019-08-05 04:08 | NUR ---
MS/RN NOTES: PATIENT COMPLAINED OF PAIN LEVEL OF 9 ON HIS RUQ. VS WNL, PT. STABLE. ADMINISTERED MORPHINE 2MG IV PUSH. WILL CONTINUE TO MONITOR.
[2019-08-05] MEDS: BLOOD SUGAR DIAGNOSTIC 1 EACH STRIP IN SCH ×2 (06:37→11:46)
[2019-08-05] MEDS: INSULIN REGULAR, HUMAN 100 UNIT/ML 3 ML VIAL SQ PRN ×2 (06:45→11:48)
--- NOTE | 2019-08-05 06:46 | NUR ---
MS/RN CLOSING NOTES: PT IN BED. AWAKE AND COMFORTABLE IN BED, ALERT AND ORIENTED X 4. NO CARDIAC OR RESP DISTRESS NOTED. NO SOB NOTED. AMBULATORY WITH STEADY GAIT. IV ACCESS NOTED ON L HAND G20. WITH IV FLUIDS RUNNING NS@ 75ML/HR. TOLERATING IV FLUIDS WELL. IV ACCESS INTACT AND PATENT. NO S/S OF INFECTION OR INFILTRATION NOTED. SAFETY PRECAUTIONS IN PLACE. BED LOCKED AND IN LOW POSITION. SIDE RAILS UP. PTS PAIN WAS MANAGED THROUGHOUT THE SHIFT. PAIN MEDICATION PROVIDED NEEDED. BLOOD SUGAR CHECK OF 136, PATIENT REFUSED INSULIN. KEPT PT WARM AND COMFORTABLE ALL NIGHT. WILL ENDORSE TO NEXT SHIFT FOR HEIDY.
--- NOTE | 2019-08-05 07:39 | NUR ---
MS RN OPENING NOTES, RECEIVED PATIENT THIS MORNING, IN BED, AWAKE AND VERBALLY RESPONSIVE. A/OX4. NO COMPLAINS OR PAIN AT TIME. NO DISTRESS/RESPIRATORY COMFORT NOTED. IV ACCESS GAUGE #20 NOTED ON L HAND G20, INTACT AND PATENT WITH NO S/S OF INFECTION OR INFILTRATION. IV FLUIDS RUNNING. SAFETY PRECAUTIONS IN PLACE. BED IN LOCKED LOWEST POSITION. SIDE RAILS UP X2. CALL LIGHT WITHIN REACH. PT IS AMBULATORY WITH STEADY GAIT. WILL CONTINUE TO MONITOR ACCORDINGLY.
[2019-08-05 08:00] VITALS: BP 124/74
[2019-08-05] MEDS ORDERED: HYDR-4354 PO (08:13)
[2019-08-05] MEDS: MULTIVITAMINS,THERAGRAN 1 UDTAB TABLET PO SCH (08:52)
[2019-08-05] MEDS: METOPROLOL TARTRATE 50 MG TABLET PO SCH (08:53)
[2019-08-05] MEDS: PANTOPRAZOLE 40 MG TABLET.DR PO SCH (08:53)
[2019-08-05 08:54] VITALS: BP 124/74
[2019-08-05] MEDS: AMLODIPINE BESYLATE 10 MG TABLET PO SCH (08:54)
[2019-08-05] MEDS: APIXABAN 5 MG TABLET PO SCH (08:56)
[2019-08-05] MEDS: GABAPENTIN 100 MG CAPSULE PO SCH ×2 (08:56→12:54)
--- NOTE | 2019-08-05 08:59 | NUR ---
RN notes/pain management Pt seen and evaluated by Dr. Goldstein. Pt c/o sharp RUQ pain with scale of 8/10. Dr Goldstein, increased Morphine 2mg to 4mg IV and was administered at 0852. Will continue to monitor and reassessed pt.
--- NOTE | 2019-08-05 11:49 | NUR ---
MS RN NOTES PT WITH BS OF 167 BEFORE LUNCH, PT REFUSED INSULIN COVERAGE. WILL CONTINUE TO MONITOR
[2019-08-05] MEDS ORDERED: MORPHINE SULFATE INJ 4 MG/ML DISP.SYRIN IV PRN (12:00)
--- NOTE | 2019-08-05 13:00 | NUR ---
MS RN NOTES ENCOURAGED PT TO EXPECTORATE SPUTUM. AT 1300 RN PATIENT INFORMED RN OF INABILITY TO EXPECTORATE SPUTUM
--- NOTE | 2019-08-05 13:05 | NUR ---
RN notes/pain management Pt c/o sharp RUQ pain with scale of 8/10. Dr Goldstein, Morphine 4mg/2ml IVP administered at 1254. Will continue to monitor and reassessed pt.
--- NOTE | 2019-08-05 13:59 | NUR ---
SOLAR PHOTOVOLTAIC INSTALLER NOTES PT IS A/O X4, SAME ABLE TO MAKE NEEDS KNOWN. HE WAS DISCHARGED HOME IN STABLE CONDITION. V/S CHECKED, STABLE AND RECORDED. SKIN IS INTACT. ALL BELONGINGS ACCOUNTED FOR AND SIGNED FORM. IV ACCESS ON LEFT HAND REMOVED WITH NO ACTIVE BLEEDING NOTED, DRY DRESSING APPLIED. NAME ARMBAND REMOVED. HEALTH TEACHINGS/DISCHARGED INSTRUCTIONS GIVEN TO PT AND VERBALIZED UNDERSTANDING. EXIT CARE FOLDER HANDED TO PT. PT LEFT UNIT AMBULATORY AT 1355 ACCOMPANIED BY MONTSERRAT CATALAN TO [place] AND GIRLFRIEND LUPE WILL TAKE PT HOME. CHARGE NURSE AWARE OF DISCHARGE.
== END 2019-08-05 13:55 | disposition home or self-care (01) | DRG 241 ==
LOC: ER 19:10 → MED 23:52
PROVIDERS: ADMIT Registered Nurse; ATTEND Nurse Practitioner Acute Care
DX: K27.9 Peptic ulcer, site unspecified, unspecified as acute or chronic, without hemorrhage or perforation (principal); K85.90 Acute pancreatitis without necrosis or infection, unspecified; D68.59 Other primary thrombophilia; E66.01 Morbid (severe) obesity due to excess calories; Z68.41 Body mass index [BMI] 40.0-44.9, adult; E11.9 Type 2 diabetes mellitus without complications; I10 Essential (primary) hypertension; E78.5 Hyperlipidemia, unspecified; Z90.49 Acquired absence of other specified parts of digestive tract; Z86.711 Personal history of pulmonary embolism; Z79.899 Other long term (current) drug therapy; Z79.01 Long term (current) use of anticoagulants; K76.0 Fatty (change of) liver, not elsewhere classified
CPT/HCPCS: 36415; 71045-TC; 71260-TC; 76700-TC; 80048-TC; 80061-TC; 80076-TC; 82962-TC; 83690-TC; 83735-TC; 84100-TC; 84443-TC; 84484-TC; 85025-TC; 85378-TC; 87081-TC; 97116-TC; 97530-TC; G0378; J1170; J1815; J2270; J2405; J7030; J7050; Q9967

== ENCOUNTER 2019-10-14 07:45 | Emergency (ER) | payer OTHER ==
[~2019-10-14] VITALS: Ht 172.7 cm; Wt 90.7 kg
[~2019-10-14 07:45] MED LIST changes: +HYDR-4354 PO
--- NOTE | 2019-10-14 08:04 | NUR ---
PT BIB SELF C/O ABDOMINAL PAIN FOR 1 MONTH, PT IS AAOX4, NOT IN RESPIRATORY DISTRESS, HOOKED TO REPACKER, KEPT RESTED AND COMFORTABLE, WILL CONTINUE TO MONITOR.
--- NOTE | 2019-10-14 08:15 | NUR ---
PT SEEN AND EXAMINED BY .
[2019-10-14] MEDS ORDERED: KETOROLAC TROMETHAMINE INJ 30 MG/ML VIAL ONE (08:32)
--- NOTE | 2019-10-14 08:40 | NUR ---
COVID SWAB OBTAINED AND SENT TO LAB.
--- NOTE | 2019-10-14 08:45 | NUR ---
CALLED RADIOLOGY DEPT FOR XRAY.
[2019-10-14] MEDS ORDERED: KETOROLAC TROMETHAMINE INJ 30 MG/ML VIAL IV ONE (09:00)
--- NOTE | 2019-10-14 09:05 | NUR ---
CALLED RADIOLOGY DEPT TO FOLLOW UP ON XRAY.
[2019-10-14] MEDS ORDERED: ONDANSETRON HCL/PF 4 MG/2 ML VIAL ONE (09:23)
[2019-10-14] MEDS ORDERED: MORPHINE SULFATE INJ 4 MG/ML DISP.SYRIN ONE (09:24)
[2019-10-14 09:29] LABS: BASOPHILS # (AUTO) 0.1 /CMM (0.0-0.2); BASOPHILS % (AUTO) 0.9 % (0.0-2.0); EOSINOPHILS % (AUTO) 5.1 % (0.0-6.0); HEMATOCRIT 47 % (39-51); HEMOGLOBIN 15.7 g/dL (13.5-17.5); LYMPHOCYTES # (AUTO) 1.6 /CMM (0.8-4.8); LYMPHOCYTES % (AUTO) 22.3 % (20.0-44.0); MEAN CORPUSCULAR HGB CONC 33 g/dl (31.0-36.0); MEAN CORPUSCULAR VOLUME 92 fL (80-96); MONOCYTES # (AUTO) 0.7 /CMM (0.1-1.30); MONOCYTES % (AUTO) 9.8 % (2.0-12.0); NEUTROPHILS # (AUTO) 4.3 /CMM (1.8-8.9); NEUTROPHILS % (AUTO) 61.9 % (43.0-81.0); PLATELET COUNT (AUTO) 242 /CMM (150-450); RED BLOOD CELL COUNT(AUTO) 5.14 MIL/uL (4.5-6.0)
--- NOTE | 2019-10-14 09:29 | NUR ---
URINAL GIVEN BUT UNABLE TO PROVIDE URINE SPECIMEN THIS TIME.
[2019-10-14] MEDS ORDERED: ONDANSETRON HCL/PF 4 MG/2 ML VIAL IVP ONE (09:30)
[2019-10-14] MEDS ORDERED: MORPHINE SULFATE INJ 2 MG/ML DISP.SYRIN IV ONE (09:30)
[2019-10-14 09:33] LABS: POTASSIUM 3.7 mmol/L (3.5-5.1)
[2019-10-14 09:39] LABS: ALBUMIN 3.4 g/dL (3.4-5.0); BILIRUBIN,DIRECT 0.1 mg/dL (0.0-0.2); BILIRUBIN,TOTAL 0.3 mg/dL (0.2-1.0); CALCIUM, SERUM 8.4 mg/dL (8.5-10.1); TOTAL PROTEIN, SERUM 7.2 g/dL (6.4-8.2)
--- NOTE | 2019-10-14 10:02 | NUR ---
PT IS BACK FROM THE CT SCAN.
--- NOTE | 2019-10-14 10:06 | NUR ---
URINE SPECIMEN COLLECTED AND SENT TO LAB.
[2019-10-14 10:10] LABS: APPEARANCE,URINE Clear (CLEAR); BILIRUBIN,URINE Negative (NEGATIVE); BLOOD, URINE Negative Ery/uL (NEGATIVE); COLOR,URINE Yellow (YELLOW); KETONES,URINE Negative (NEGATIVE); LEUKOCYTE ESTERASE ,URINE Negative (NEGATIVE); NITRITE, URINE Negative (NEGATIVE); PROTEIN,URINE Negative (NEGATIVE); UGLUCOSE Negative (NEGATIVE); UROBILINOGEN,URINE 0.2 EU/dL (0.2)
--- NOTE | 2019-10-14 10:39 | NUR ---
IV removed. Catheter intact and site benign. Pressure and 4x4 applied to site. No bleeding noted. Patient discharged to home in stable condition. Written and verbal after care instructions given. Patient verbalizes understanding of instruction.
[2019-10-14 10:40] VITALS: BP 138/84
== END 2019-10-14 10:40 | disposition home or self-care (01) ==
LOC: ER 07:47
DX: J20.9 Acute bronchitis, unspecified (principal); I10 Essential (primary) hypertension; E78.5 Hyperlipidemia, unspecified; Z90.49 Acquired absence of other specified parts of digestive tract; Z79.899 Other long term (current) drug therapy; Z20.828 Contact with and (suspected) exposure to other viral communicable diseases
CPT/HCPCS: 36415; 71045; 74176; 80048; 80076; 81001; 83690; 85025; 96374; 96375; 99285; J1885; J2270; J2405; U0003; 81000-TC

== ENCOUNTER 2020-04-23 20:57 | Inpatient (IN) | payer OTHER ==
[~2020-04-23] VITALS: Ht 175.3 cm; Wt 132.9 kg
[2020-04-23] VITALS: BP 152/71
[~2020-04-23 20:57] MED LIST changes: +AMLO-213 PO; -AMLO10TA7 PO
--- NOTE | 2020-04-23 21:06 | NUR ---
BIBS FOR C/O MID STERNAL CP RADIATING TO THE BACK X 1 HR, +SOB, PT AAOX4, -SOB, NOT IN ACUTE DISTRESES, GOWNED, PLACED ON MONITOR, VSS. PENDING ER PROVIDER FAB
[2020-04-23 21:38] LABS: BASOPHILS # (AUTO) 0.1 /CMM (0.0-0.2); BASOPHILS % (AUTO) 1.2 % (0.0-2.0); EOSINOPHILS % (AUTO) 4.9 % (0.0-6.0); HEMATOCRIT 47 % (39-51); HEMOGLOBIN 15.7 g/dL (13.5-17.5); LYMPHOCYTES % (AUTO) 26.7 % (20.0-44.0); MEAN CORPUSCULAR HGB CONC 33 g/dl (31.0-36.0); MEAN CORPUSCULAR VOLUME 93 fL (80-96); MONOCYTES # (AUTO) 0.8 /CMM (0.1-1.30); MONOCYTES % (AUTO) 10.9 % (2.0-12.0); NEUTROPHILS # (AUTO) 4.2 /CMM (1.8-8.9); NEUTROPHILS % (AUTO) 56.3 % (43.0-81.0); PLATELET COUNT (AUTO) 238 /CMM (150-450); RED BLOOD CELL COUNT(AUTO) 5.11 MIL/uL (4.5-6.0); WHITE BLOOD COUNT (AUTO) 7.4 K/uL (4.3-11.0)
[2020-04-23 21:49] LABS: CALCIUM, SERUM 9.7 mg/dL (8.5-10.1); CARBON DIOXIDE 28 mmol/L (21-32); CHLORIDE 99 mmol/L (98-107); CREATININE 1.2 mg/dL (0.6-1.3); POTASSIUM 4.2 mmol/L (3.5-5.1); SODIUM SERUM 136 mmol/L (136-145); UREA NITROGEN, BLOOD 20 mg/dL (7-18)
[2020-04-23 21:51] LABS: GLUCOSE 564 mg/dL (74-106)
[2020-04-23 21:59] LABS: ALANINE AMINOTRANSFERASE 26 U/L (12-78); ALBUMIN 3.3 g/dL (3.4-5.0); ALKALINE PHOSPHATASE 128 U/L (46-116); ASPARTATE AMINOTRANSFERASE 14 U/L (15-37); B-TYPE NATRIURETIC PEPTIDE 34 PG/ML (0-125); BILIRUBIN,DIRECT 0.1 mg/dL (0.0-0.2); BILIRUBIN,TOTAL 0.4 mg/dL (0.2-1.0); TOTAL PROTEIN, SERUM 6.9 g/dL (6.4-8.2)
[2020-04-23] MEDS ORDERED: ONDANSETRON HCL/PF 4 MG/2 ML VIAL ONE (21:59)
[2020-04-23] MEDS ORDERED: MORPHINE SULFATE INJ 4 MG/ML DISP.SYRIN ONE ×2 (21:59→23:39)
[2020-04-23] MEDS ORDERED: APIXABAN 5 MG TABLET PO SCH (22:00)
[2020-04-23] MEDS ORDERED: IV NS 0.9% 250 ML IV ONE (22:09)
[2020-04-23] MEDS ORDERED: IOHEXOL-350 100 ML VIAL IV ONE (22:09)
[2020-04-23] MEDS ORDERED: APIXABAN 5 MG TABLET ONE (22:17)
[2020-04-23] MEDS ORDERED: MORPHINE SULFATE INJ 10 MG/ML DISP.SYRIN IV ONE (22:30)
[2020-04-23] MEDS ORDERED: ONDANSETRON HCL/PF - ER 4 MG/2 ML VIAL IV ONE (22:30)
[2020-04-23] MEDS: ASPIRIN 325 MG TABLET PO SCH (23:00)
[2020-04-23] MEDS: AMLODIPINE BESYLATE 10 MG TABLET PO SCH (23:00)
[2020-04-23] MEDS ORDERED: IV NS 0.9% 1,000 ML BAG IV ONE (23:00)
[2020-04-23] MEDS ORDERED: INSULIN REGULAR, HUMAN 100 UNIT/ML 10 ML VIAL SQ ONE (23:00)
--- NOTE | 2020-04-23 23:41 | NUR ---
call from lab, rapid covid negative.
[2020-04-24] MEDS ORDERED: MORPHINE SULFATE INJ 2 MG/ML DISP.SYRIN IV ONE
--- NOTE | 2020-04-24 00:21 | NUR ---
REPORT GIVEN TO SURI MARIANO FOR [facility]; PT WILL BE TRANSPORTED TO 3RD FLOOR
--- NOTE | 2020-04-24 00:37 | NUR ---
PT TRANSPORTED TO 3RD FLOOR
--- NOTE | 2020-04-24 01:55 | NUR ---
[employer]PORATE [employer] GOODS MARKER NOTE Patient arrived via anastasia @ 0030. VS: BP133/95 P94 R20 T97.8 O2sat 94% on 2LPM NC. PERRLA. Afebrile. Breath sounds even, clear, unlabored in all lobes. Non-productive cough noted. Mild SOB noted. HOB elevated. Patient c/o chest pain, crushing and radiating to back, pain level 8. No acute distress or SOB. No JVD. CRP <3seconds. Brachial and pedal pulses 2+, symmetrical. Sensations intact. Skin is warm, pink, dry, intact. Patient able to achieve full ROM. Installation Service Representative strength 5+. Abdomen large, round, soft, non-tender. BS hypoactive. Last BM was this afternoon. Patient void via urinal. Patient oriented to room. Admission completed. Bed in low position, wheels locked, side rails up x2, call light within reach.
[2020-04-24] MEDS: MORPHINE SULFATE INJ 2 MG/ML DISP.SYRIN IV PRN ×5 (03:15→21:05)
--- NOTE | 2020-04-24 06:00 | NUR ---
SHIRT PRESSER CLOSING NOTE Patient A/O x4. Afebrile. Breath sounds even, clear, unlabored in all lobes. Non-productive cough noted. Mild SOB noted. HOB elevated. No acute distress or SOB. Sensations intact. No bowel movement during this shift. Patient void via urinal, clear yellow urine. Bed in low position, wheels locked, side rails up x2, call light within reach.
--- NOTE | 2020-04-24 07:30 | NUR ---
received pt. this am.alert and oriented x4.no complaints offered.no acute distress.vs stable.
[2020-04-24 08:00] VITALS: BP 132/92
[2020-04-24] MEDS ORDERED: DEXTROSE 50%-WATER 50 ML DISP.SYRIN IV PRN (08:00)
[2020-04-24] MEDS ORDERED: *INSULIN REGULAR(HUMULIN R)HUM 100 UNIT/ML VIAL SQ PRN (08:00)
[2020-04-24 10:19] LABS: BASOPHILS # (AUTO) 0.1 /CMM (0.0-0.2); BASOPHILS % (AUTO) 0.7 % (0.0-2.0); EOSINOPHILS % (AUTO) 6.8 % (0.0-6.0); HEMATOCRIT 47 % (39-51); HEMOGLOBIN 15.7 g/dL (13.5-17.5); LYMPHOCYTES # (AUTO) 1.8 /CMM (0.8-4.8); MEAN CORPUSCULAR HGB CONC 33 g/dl (31.0-36.0); MEAN CORPUSCULAR VOLUME 92 fL (80-96); MONOCYTES # (AUTO) 0.7 /CMM (0.1-1.30); MONOCYTES % (AUTO) 9.2 % (2.0-12.0); NEUTROPHILS # (AUTO) 4.5 /CMM (1.8-8.9); NEUTROPHILS % (AUTO) 59.3 % (43.0-81.0); PLATELET COUNT (AUTO) 230 /CMM (150-450); WHITE BLOOD COUNT (AUTO) 7.5 K/uL (4.3-11.0)
[2020-04-24 10:20] LABS: CALCIUM, SERUM 8.7 mg/dL (8.5-10.1); CREATININE 0.9 mg/dL (0.6-1.3); POTASSIUM 4.1 mmol/L (3.5-5.1)
[2020-04-24 10:26] LABS: ALBUMIN 3.4 g/dL (3.4-5.0); BILIRUBIN,TOTAL 0.5 mg/dL (0.2-1.0); MAGNESIUM 1.9 mg/dL (1.8-2.4)
[2020-04-24] MEDS: ASPIRIN 325 MG TABLET PO SCH (10:27)
[2020-04-24] MEDS: AMLODIPINE BESYLATE 10 MG TABLET PO SCH (10:28)
[2020-04-24] MEDS: GABAPENTIN 100 MG CAPSULE PO SCH ×3 (10:28→18:07)
[2020-04-24] MEDS: METOPROLOL TARTRATE 25 MG TABLET PO SCH ×2 (10:29→18:07)
[2020-04-24] MEDS: APIXABAN 5 MG TABLET PO SCH ×2 (10:34→18:08)
[2020-04-24] MEDS: BLOOD SUGAR DIAGNOSTIC 1 EACH STRIP VI SCH ×3 (11:54→21:14)
[2020-04-24 12:00] VITALS: BP 155/114
[2020-04-24] MEDS: INSULIN REGULAR, HUMAN 100 UNIT/ML 3 ML VIAL SQ PRN ×2 (12:01→18:01)
--- NOTE | 2020-04-24 12:40 | NUR ---
med x2 for pain.
--- NOTE | 2020-04-24 15:09 | NUR ---
urine sent as per orders.
[2020-04-24 16:00] VITALS: BP 127/82
[2020-04-24] MEDS ORDERED: INFLUENZA VACCINE 2020-21 0.5 ML DISP.SYRIN IM ONE (16:00)
[2020-04-24 16:11] LABS: BILIRUBIN,URINE NEGATIVE (NEGATIVE); BLOOD, URINE MODERATE Ery/uL (NEGATIVE); COLOR,URINE YELLOW (YELLOW); LEUKOCYTE ESTERASE ,URINE NEGATIVE (NEGATIVE); NITRITE, URINE NEGATIVE (NEGATIVE); PROTEIN,URINE NEGATIVE (NEGATIVE); UGLUCOSE >=1000 mg/dL (NEGATIVE); UROBILINOGEN,URINE 0.2 EU/dL (0.2)
[2020-04-24 17:55] LABS: WBC,URINE 0-2 /HPF (0-3)
[2020-04-24 17:56] LABS: BACTERIA,URINE Rare /HPF (None Seen); SQUAMOUS EPITHELIAL CELL,UR Few /HPF (None Seen)
--- NOTE | 2020-04-24 18:00 | NUR ---
GLUCOSE STILL ON THE HIGH SIDE.PT. ACCEPTING OF INSULIN.ONLY TAKES METFORMIN AT HOME
--- NOTE | 2020-04-24 19:00 | NUR ---
TELE/RN OPENING NOTES: RECEIVED PT FROM [facility] WING. PT IS STABLE, A/OX4. VERBALLY RESPONSIVE AND ABLE TO MAKE NEEDS KNOWN. ON 2L OXYGEN VIA NC SATURATING AT 95%, NO C/O CHEST PAIN AT THIS TIME. NO SOB NOTED. NO S/S OF DISTRESS. BRETAHING EVEN AND UNLABORED. TELE READING OF SR 85. VSS. SAFETY MEASURES IN PLACE. BED IN LOW, LOCKED POSITION WITH SR UPX2. CALL LIGHT WITHIN REACH. WILL CONTINUE TO MONITOR.
[2020-04-24 20:00] VITALS: BP 144/100
--- NOTE | 2020-04-24 21:05 | NUR ---
TELE/RN NOTES: PT COMPLAINED OF PAIN ON HIS CHEST. REQUEST PAIN MED. ADMINISTERED 2MG MORPHINE PER ORDERED. VSS. WILL CONTINUE TO MONITOR.
[2020-04-24] MEDS ORDERED: ATORVASTATIN 10 MG TABLET PO SCH (22:00)
[2020-04-25] VITALS: BP 145/85
[2020-04-25] MEDS: MORPHINE SULFATE INJ 2 MG/ML DISP.SYRIN IV PRN ×2 (01:56→06:42)
--- NOTE | 2020-04-25 01:56 | NUR ---
TELE/RN NOTES: PT COMPLAINED OF PAIN ON HIS CHEST 8 OUT OF 10. REQUESTING PAIN MED. ADMINISTERED 2MG MORPHINE PER ORDERED Q4H. VSS. WILL CONTINUE TO MONITOR.
[2020-04-25 04:00] VITALS: BP 140/97
[2020-04-25] MEDS: BLOOD SUGAR DIAGNOSTIC 1 EACH STRIP VI SCH (06:42)
--- NOTE | 2020-04-25 06:45 | NUR ---
TELE/RN NOTES: PT COMPLAINED OF PAIN ON HIS CHEST 9 OUT OF 10. REQUESTING PAIN MED. ADMINISTERED 2MG MORPHINE PER ORDERED Q4H. VSS. WILL CONTINUE TO MONITOR.
[2020-04-25] MEDS: INSULIN REGULAR, HUMAN 100 UNIT/ML 3 ML VIAL SQ PRN (06:46)
[2020-04-25 06:52] LABS: CALCIUM, SERUM 8.2 mg/dL (8.5-10.1); CREATININE 0.6 mg/dL (0.6-1.3); POTASSIUM 3.7 mmol/L (3.5-5.1)
[2020-04-25 06:56] LABS: BASOPHILS # (AUTO) 0.1 /CMM (0.0-0.2); BASOPHILS % (AUTO) 0.9 % (0.0-2.0); EOSINOPHILS % (AUTO) 5.2 % (0.0-6.0); HEMATOCRIT 47 % (39-51); HEMOGLOBIN 15.8 g/dL (13.5-17.5); LYMPHOCYTES # (AUTO) 1.3 /CMM (0.8-4.8); LYMPHOCYTES % (AUTO) 17.2 % (20.0-44.0); MEAN CORPUSCULAR HGB CONC 33 g/dl (31.0-36.0); MEAN CORPUSCULAR VOLUME 93 fL (80-96); MONOCYTES # (AUTO) 0.6 /CMM (0.1-1.30); MONOCYTES % (AUTO) 8.1 % (2.0-12.0); NEUTROPHILS # (AUTO) 5.3 /CMM (1.8-8.9); NEUTROPHILS % (AUTO) 68.6 % (43.0-81.0); PLATELET COUNT (AUTO) 215 /CMM (150-450); WHITE BLOOD COUNT (AUTO) 7.7 K/uL (4.3-11.0)
--- NOTE | 2020-04-25 07:10 | NUR ---
TELE/RN OPENING NOTES: PT REMAINS STABLE, A/OX4. VERBALLY RESPONSIVE AND ABLE TO MAKE NEEDS KNOWN. ON 2L OXYGEN VIA NC SATURATING AT 95%, NO C/O CHEST PAIN AT THIS TIME. NO SOB NOTED. NO S/S OF DISTRESS. BREATHING EVEN AND UNLABORED. TELE READING OF SR 80. VSS. SAFETY MEASURES IN PLACE. BED IN LOW, LOCKED POSITION WITH SR UPX2. CALL LIGHT WITHIN REACH. ALL NURSING NEEDS MET AND RENDERED. ENDORSED TO MONTSERRAT WING FOR [facility]ID[facility].
[2020-04-25 08:00] VITALS: BP 145/108
--- NOTE | 2020-04-25 08:00 | NUR ---
RECEIVED PT. IN AM.ALERT AND ORIENTED X4.ANXIOUS TO GO HOME.
--- NOTE | 2020-04-25 08:15 | NUR ---
DR. GARSIA IN AND TO AV PT. TODAY.
[2020-04-25] MEDS: ASPIRIN 325 MG TABLET PO SCH (08:51)
[2020-04-25] MEDS: GABAPENTIN 100 MG CAPSULE PO SCH (08:52)
[2020-04-25] MEDS: AMLODIPINE BESYLATE 10 MG TABLET PO SCH (08:52)
[2020-04-25] MEDS: METOPROLOL TARTRATE 25 MG TABLET PO SCH (08:53)
[2020-04-25] MEDS: APIXABAN 5 MG TABLET PO SCH (08:54)
[2020-04-25] MEDS ORDERED: METOPROLOL TARTRATE 25 MG TABLET PO SCH (09:00)
--- NOTE | 2020-04-25 09:00 | NUR ---
CT ANGIO OF HEART ORDERED BY DR. RITTER. PT. REFUSING.RN CONTACTED DR. RITTER THAT PT. REFUSING.DR. RITTER OK'D FOR PT. TO BE DC'D.
[2020-04-25] MEDS ORDERED: METOPROLOL TARTRATE 50 MG TABLET PO ONE (09:30)
[2020-04-25 09:34] VITALS: BP 145/108
--- NOTE | 2020-04-25 10:35 | NUR ---
DC PAPERS GIVEN TO PT. ALL SIGNATURES OBTAINED.INSTRUCTED TO FOLLOW UP WITH TRAINING PERSONNEL SUPERVISOR FOR DIABETIC INSTRUCTION.HEP LOCK REMOVED.TAKEN TO LOBBY ACCOMPANIED BY STORE LEAD.PT. INSISTED ON WALKING TO LOBBY.
[2020-04-25] MEDS ORDERED: METOPROLOL TARTRATE 50 MG TABLET PO SCH (21:00)
== END 2020-04-25 10:45 | disposition home or self-care (01) | DRG 139 ==
LOC: ER 20:58 → TELE 23:59
PROVIDERS: ADMIT Internal Medicine; ATTEND Family Medicine
DX: J15.9 Unspecified bacterial pneumonia (principal); E11.42 Type 2 diabetes mellitus with diabetic polyneuropathy; E11.65 Type 2 diabetes mellitus with hyperglycemia; K21.9 Gastro-esophageal reflux disease without esophagitis; D68.59 Other primary thrombophilia; E78.5 Hyperlipidemia, unspecified; N17.0 Acute kidney failure with tubular necrosis; I10 Essential (primary) hypertension; Z86.711 Personal history of pulmonary embolism; Z79.01 Long term (current) use of anticoagulants; E66.01 Morbid (severe) obesity due to excess calories; Z68.41 Body mass index [BMI] 40.0-44.9, adult; Z79.4 Long term (current) use of insulin; Z91.19 Patient's noncompliance with other medical treatment and regimen; E88.09 Other disorders of plasma-protein metabolism, not elsewhere classified; Z79.84 Long term (current) use of oral hypoglycemic drugs; E44.0 Moderate protein-calorie malnutrition; Z91.14 Patient's other noncompliance with medication regimen
CPT/HCPCS: 36415; 71045-TC; 80048-TC; 80053-TC; 80076-TC; 81001; 82962-TC; 83735-TC; 83880; 84100-TC; 84484-TC; 85025-TC; 87081-TC; 93307-TC; C9803; G0378; J1815; J2270; J2405; J7050; Q2036; Q9967

== ENCOUNTER 2022-03-31 16:23 | Emergency (ER) | payer OTHER ==
[~2022-03-31] VITALS: Ht 177.8 cm; Wt 136.1 kg
[2022-03-31] MEDS ORDERED: IOHEXOL-300 100 ML VIAL IV ONE (16:51)
--- NOTE | 2022-03-31 16:54 | NUR ---
IV LINE ESTABLISHED ON RAC #20, BLOOD DRAWN AND COLLECTED BY PHLEB AT BEDSIDE
--- NOTE | 2022-03-31 16:54 | NUR ---
DR REEVES AT BEDSIDE FOR EVAL
[2022-03-31 17:00] LABS: BASOPHILS # (AUTO) 0.1 K/uL (0.0-0.2); BASOPHILS % (AUTO) 0.8 % (0.0-2.0); EOSINOPHILS % (AUTO) 4.5 % (0.0-6.0); HEMATOCRIT 46 % (39-51); HEMOGLOBIN 15.4 g/dL (13.5-17.5); LYMPHOCYTES # (AUTO) 2.1 K/uL (0.8-4.8); LYMPHOCYTES % (AUTO) 22.1 % (20.0-44.0); MEAN CORPUSCULAR HGB CONC 33 g/dl (31.0-36.0); MEAN CORPUSCULAR VOLUME 91 fL (80-96); MONOCYTES # (AUTO) 0.7 K/uL (0.1-1.30); MONOCYTES % (AUTO) 7.7 % (2.0-12.0); NEUTROPHILS # (AUTO) 6.2 K/uL (1.8-8.9); NEUTROPHILS % (AUTO) 64.9 % (43.0-81.0); PLATELET COUNT (AUTO) 244 K/uL (150-450); RED BLOOD CELL COUNT(AUTO) 5.09 MIL/uL (4.5-6.0); WHITE BLOOD COUNT (AUTO) 9.5 K/uL (4.3-11.0)
[2022-03-31] MEDS ORDERED: MORPHINE SULFATE INJ 2 MG/ML DISP.SYRIN ONE ×3 (17:08→22:18)
[2022-03-31 17:21] LABS: CALCIUM, SERUM 8.4 mg/dL (8.5-10.1); CARBON DIOXIDE 30 mmol/L (21-32); CHLORIDE 103 mmol/L (98-107); CREATININE 0.9 mg/dL (0.6-1.3); GLUCOSE 230 mg/dL (74-106); POTASSIUM 3.9 mmol/L (3.5-5.1); SODIUM SERUM 138 mmol/L (136-145); UREA NITROGEN, BLOOD 16 mg/dL (7-18)
[2022-03-31] MEDS ORDERED: MORPHINE SULFATE INJ 2 MG/ML DISP.SYRIN IM ONE (17:30)
--- NOTE | 2022-03-31 17:55 | NUR ---
PT TAKEN TO RADIOLOGY FOR CT
--- NOTE | 2022-03-31 18:22 | NUR ---
OKAY PER DR REEVES TO GIVE ANOTHER 2MG MORPHINE IV. ORDER IS READ BACK AND VERIFIED.
[2022-03-31] MEDS ORDERED: MORPHINE SULFATE INJ 2 MG/ML DISP.SYRIN IV ONE ×2 (18:30→22:30)
--- NOTE | 2022-03-31 19:00 | NUR ---
COVID SWAB COLLECTED AND SENT TO LAB
[2022-03-31] MEDS ORDERED: ASPIRIN EC 325 MG TABLET.DR PO ONE ×2 (19:24→19:30)
--- NOTE | 2022-03-31 20:50 | NUR ---
SPOKE TO [facility]ALTH[facility] WELD TECHNICIAN JILLIAN
--- NOTE | 2022-04-01 00:37 | NUR ---
[facility] auth no: [id number] [facility] TELE HOLD IN ER NUMBER FOR REPORT: [phone]: DR CAN
--- NOTE | 2022-04-01 00:46 | NUR ---
[facility]/ [facility]: ETA: [id number]
--- NOTE | 2022-04-01 01:19 | NUR ---
REPORT GIVEN TO MISTY CHARGE NURSE RN FROM [facility]
[2022-04-01] MEDS ORDERED: MORPHINE SULFATE INJ 2 MG/ML DISP.SYRIN IV ONE (02:00)
[2022-04-01] MEDS ORDERED: MORPHINE SULFATE INJ 2 MG/ML DISP.SYRIN ONE (02:14)
[2022-04-01] MEDS ORDERED: ACETAMINOPHEN ES 500 MG TABLET ONE (07:00)
[2022-04-01] MEDS ORDERED: ACETAMINOPHEN ES 500 MG TABLET PO ONE (07:00)
[2022-04-01 07:02] VITALS: BP 153/82
--- NOTE | 2022-04-01 07:03 | NUR ---
PT C/O H/A 12/25. ADMIN TYLENOL 1000MG ORDERED.
--- NOTE | 2022-04-01 07:39 | NUR ---
EMT AT BEDSIDE TO TILE PICKER PT.
--- NOTE | 2022-04-01 07:48 | NUR ---
PT DISCHARGED TO [facility] ER VIA [facility] PROTOCOL, ACCOMPANIED BY 2 INSPECTOR OUTSIDE PRODUCTION. BEDSIDE ENDORSEMENT GIVEN. CLINICALS PROVIDED.
== END 2022-04-01 07:50 | disposition short-term general hospital (02) ==
LOC: ER 16:33
DX: R07.9 Chest pain, unspecified (principal); D68.59 Other primary thrombophilia; Z86.711 Personal history of pulmonary embolism; E11.9 Type 2 diabetes mellitus without complications; R06.00 Dyspnea, unspecified; Z20.822 Contact with and (suspected) exposure to COVID-19; R91.8 Other nonspecific abnormal finding of lung field; R59.0 Localized enlarged lymph nodes; Z79.84 Long term (current) use of oral hypoglycemic drugs; Z79.899 Other long term (current) drug therapy; I10 Essential (primary) hypertension
CPT/HCPCS: 99285; 96374; 71260; 87426; 93005; 85025; 80048; 36415; 84484; 87081; 96376 ×2; J2270 ×4; Q9967; C9803

== ENCOUNTER 2023-07-10 17:32 | Emergency (ER) | payer OTHER ==
[~2023-07-10] VITALS: Ht 177.8 cm; Wt 142.9 kg
[2023-07-10 17:43] VITALS: TEMP 98.5
[2023-07-10] MEDS ORDERED: ONDANSETRON HCL/PF 4 MG/2 ML VIAL ONE (18:17)
[2023-07-10] MEDS ORDERED: MORPHINE SULFATE INJ 2 MG/ML DISP.SYRIN ONE (18:18)
[2023-07-10] MEDS: ONDANSETRON HCL/PF 4 MG/2 ML VIAL IVP ONE (18:26)
[2023-07-10] MEDS: IV NS 0.9% 1,000 ML BAG IV ONE (18:26)
[2023-07-10] MEDS: MORPHINE SULFATE INJ 2 MG/ML DISP.SYRIN IV ONE (18:26)
[2023-07-10 18:36] LABS: BASOPHILS % (AUTO) 0.4 % (0.0-2.0); EOSINOPHILS # (AUTO) 0.3 K/uL (0.0-0.7); EOSINOPHILS % (AUTO) 3.3 % (0.0-6.0); HEMATOCRIT 48 % (39-51); HEMOGLOBIN 16.1 g/dL (13.5-17.5); LYMPHOCYTES # (AUTO) 2.1 K/uL (0.8-4.8); LYMPHOCYTES % (AUTO) 20.6 % (20.0-44.0); MEAN CORPUSCULAR HEMOGLOBIN 30 PG (26.0-33.0); MEAN CORPUSCULAR HGB CONC 34 g/dl (31.0-36.0); MEAN CORPUSCULAR VOLUME 90 fL (80-96); MONOCYTES # (AUTO) 0.8 K/uL (0.1-1.30); MONOCYTES % (AUTO) 7.7 % (2.0-12.0); PLATELET COUNT (AUTO) 263 K/uL (150-450); RED BLOOD CELL COUNT(AUTO) 5.32 MIL/uL (4.5-6.0); RED CELL DISTRIBUTION WIDTH 13.8 % (11.5-15.0); WHITE BLOOD COUNT (AUTO) 10.3 K/uL (4.3-11.0)
[2023-07-10 18:45] LABS: INR 0.97 (0.91-1.10); PARTIAL THROMBOPLASTIN TIME 25.4 SEC (24.3-34.3); PROTHROMBIN TIME 10.3 SECS (9.2-11.1)
[2023-07-10 18:50] LABS: CARBON DIOXIDE 28 mmol/L (21-32); CHLORIDE 100 mmol/L (98-107); GLUCOSE 300 mg/dL (74-106); POTASSIUM 3.2 mmol/L (3.5-5.1); SODIUM SERUM 139 mmol/L (136-145); UREA NITROGEN, BLOOD 17 mg/dL (7-18)
[2023-07-10 18:57] LABS: ALANINE AMINOTRANSFERASE 31 U/L (12-78); ALBUMIN 3.6 g/dL (3.4-5.0); ALKALINE PHOSPHATASE 105 U/L (46-116); ASPARTATE AMINOTRANSFERASE 18 U/L (15-37); BILIRUBIN,DIRECT 0.1 mg/dL (0.0-0.2); BILIRUBIN,TOTAL 0.5 mg/dL (0.2-1.0); TOTAL PROTEIN, SERUM 7.7 g/dL (6.4-8.2)
[2023-07-10] MEDS ORDERED: HYDROMORPHONE 1 MG/1 ML DISP.SYRIN ONE ×2 (19:09→20:43)
[2023-07-10] MEDS: HYDROMORPHONE 1 MG/1 ML DISP.SYRIN IV ONE ×2 (19:10→20:49)
[2023-07-10] MEDS ORDERED: CT SWABBABLE VALVE TRANS SET 1 EA INFUS.SET MC ONE (20:11)
[2023-07-10] MEDS ORDERED: IOHEXOL-300 100 ML VIAL IV ONE (20:11)
[2023-07-10] MEDS ORDERED: IV NS 0.9% 250 ML IV ONE (20:11)
[2023-07-10 21:07] LABS: BASOPHILS # (AUTO) 0.1 K/uL (0.0-0.2); BASOPHILS % (AUTO) 0.5 % (0.0-2.0); EOSINOPHILS # (AUTO) 0.3 K/uL (0.0-0.7); EOSINOPHILS % (AUTO) 2.3 % (0.0-6.0); HEMATOCRIT 45 % (39-51); LYMPHOCYTES # (AUTO) 2.2 K/uL (0.8-4.8); LYMPHOCYTES % (AUTO) 19.2 % (20.0-44.0); MEAN CORPUSCULAR HEMOGLOBIN 30 PG (26.0-33.0); MEAN CORPUSCULAR HGB CONC 34 g/dl (31.0-36.0); MEAN CORPUSCULAR VOLUME 90 fL (80-96); MONOCYTES # (AUTO) 0.9 K/uL (0.1-1.30); MONOCYTES % (AUTO) 7.5 % (2.0-12.0); NEUTROPHILS # (AUTO) 8.2 K/uL (1.8-8.9); NEUTROPHILS % (AUTO) 70.5 % (43.0-81.0); PLATELET COUNT (AUTO) 243 K/uL (150-450); RED BLOOD CELL COUNT(AUTO) 4.98 MIL/uL (4.5-6.0); RED CELL DISTRIBUTION WIDTH 13.9 % (11.5-15.0); WHITE BLOOD COUNT (AUTO) 11.7 K/uL (4.3-11.0)
[2023-07-10] MEDS ORDERED: HYDR25SU33 RC (21:49)
[2023-07-10 22:19] VITALS: BP 112/78; O2SAT 96
== END 2023-07-10 22:19 | disposition home or self-care (01) ==
LOC: ER 17:32
DX: K62.5 Hemorrhage of anus and rectum (principal); I10 Essential (primary) hypertension; E11.9 Type 2 diabetes mellitus without complications; Z90.49 Acquired absence of other specified parts of digestive tract; Z79.84 Long term (current) use of oral hypoglycemic drugs; Z79.899 Other long term (current) drug therapy
CPT/HCPCS: 99285; 74177; 96374; 71045; 96375; 96361; 93005; 96376; 85025 ×2; 80048; 80076; 36415; 84484; 85730; 86850; J2405; J7050; J2270; Q9967; J1170 ×2